=== PATIENT | female | born 1980 | race Caucasian/White ===

== ENCOUNTER 2020-09-24 16:00 | Inpatient (IN) | payer BC, OTHER ==
[2020-09-24] MEDS ORDERED: Sodium Chloride 0.9% 10 ML Syringe FLUSH PRN (16:28)
--- NOTE | 2020-09-24 17:01 | EDM.PDOC ---
ED HPI GENERAL MEDICAL PROBLEM - General Chief Complaint: Respiratory Problem Stated Complaint: [facility] Time Seen by Provider: 09/24/20 16:22 Source of Information: Reports: Patient, RN Notes Reviewed History Limitations: Reports: No Limitations - History of Present Illness INITIAL COMMENTS - FREE TEXT/NARRATIVE: Patient is a 39-year-old female who presents to the ED via [facility] for the evaluation of her ongoing COVID-19 symptoms. Patient notes that she has been feeling ill since about Saturday this last week that would be September 19, 2020, she did test positive for COVID-19 yesterday 09/23/2020. She is complaining of a nonproductive cough, generalized body aches, fatigue, and increased shortness of breath. Patient is visibly dyspneic when talking with her, and she is having hard time completing sentences without stopping. O2 sats at time of triage were 87% on room air, respiratory rate was between 20 to 22 breaths/min, her pulse rate is 95 bpm, her temperature is 100.2 F, and her blood pressure was 112/64. She took her temperature at home and was 102 F. She took 1000 mg of Tylenol at around 2 PM today. She notes that she is has some blood-tinged sputum that she is coughing up as well. Patient is a teacher at the [employer]. She is also complaining of some mild nausea, some looser stools, and no sense of smell. Generalized Pain Score (Numeric/FACES): 7 - Related Data Allergies Allergy/AdvReac Type Severity Reaction Status Date / Time No Known Allergies Allergy Verified 09/24/20 16:11 Home Meds: Home Meds Water Pill. 1 tab PO DAILY 09/24/20 [History] Past Medical History - Infectious Disease History Infectious Disease History: Reports: Novel Coronavirus (09/23/2020) - Past Surgical History HEENT Surgical History: Reports: Adenoidectomy, Tonsillectomy Female Surgical History: Reports: Tubal Ligation Social & Family History - Tobacco Use Tobacco Use Status *Q: Never Tobacco User Second Hand Smoke Exposure: No - Caffeine Use Caffeine Use: Reports: None - Recreational Drug Use Recreational Drug Use: No ED ROS GENERAL - Review of Systems Review Of Systems: Comprehensive ROS is negative, except as noted in HPI. ED EXAM, GENERAL - Physical Exam Exam: See Below Exam Limited By: No Limitations General Appearance: Alert, WD/WN, Mild Distress (patient is speaking in broken sentences), Obese (pt is morbidly obese) Respiratory/Chest: No Respiratory Distress, Lungs Clear, No Accessory Muscle Use, Chest Non-Tender, Decreased Breath Sounds (decreased diffuse bilaterally) Cardiovascular: Normal Peripheral Pulses, Regular Rate, Rhythm, No Edema, No Murmur Peripheral Pulses: 2+: Radial (L), Radial (R) Extremities: Normal Inspection, Normal Capillary Refill Neurological: Alert, Oriented, Normal Cognition, No Motor/Sensory Deficits Psychiatric: Normal Affect, Normal Mood Skin Exam: Warm, Dry, Intact, Normal Color, No Rash #1 Interpretation EKG Date: 09/24/20 Time: 16:57 Rhythm: NSR Rate (Beats/Min): 87 [place]: Normal P-Wave: Present QRS: Normal ST-T: Normal QT: Normal Comparison: NA - No Prior EKG EKG Interpretation Comments: No obvious ischemia or acute ST changes noted, reviewed by myself and Dr. Hand. Course - Vital Signs Last Recorded V/S: Last Vital Signs Temp 100.2 F 09/24/20 16:06 Pulse 95 09/24/20 16:06 Resp 20 09/24/20 16:06 BP 112/64 09/24/20 16:06 Pulse Ox 97 09/24/20 16:06 - Orders/Labs/Meds Orders: Active Orders 24 hr Category Date Time Status EKG Documentation Completion [RC] STAT Care 09/24/20 16:23 Ordered Peripheral IV Care [RC] . DIRECTED Care 09/24/20 16:28 Ordered Chest 1V Frontal [CR] Stat Exams 09/24/20 16:23 Ordered Sodium Chloride 0.9% [Saline Flush] Med 09/24/20 16:28 Ordered 10 ml FLUSH ASDIRECTED PRN Peripheral IV Insertion Adult [OM.PC] Routine Oth 09/24/20 16:28 Ordered Medication Orders Sodium Chloride (Saline Flush) 10 ml FLUSH ASDIRECTED PRN PRN Reason: Keep Vein Open Last Admin: 09/24/20 16:38 Dose: 10 ml Documented by: MEIR Labs: Laboratory Tests 09/24/20 09/24/20 09/24/20 Range/Units 16:44 16:44 16:44 WBC 3.84 L (3.98-10.04) K/mm3 RBC 4.42 (3.98-5.22) M/mm3 Hgb 12.0 (11.2-15.7) gm/dl Hct 38.3 (34.1-44.9) % MCV 86.7 (79.4-94.8) fl MCH 27.1 (25.6-32.2) pg MCHC 31.3 L (32.2-35.5) g/dl RDW Std Deviation 45.4 (36.4-46.3) fL Plt Count 238 (182-369) K/mm3 MPV 10.1 (9.4-12.3) fl Neutrophils % (Manual) 69 H (40-60) % Band Neutrophils % 0 (0-10) % Lymphocytes % (Manual) 22 (20-40) % Atypical Lymphs % 0 % Monocytes % (Manual) 9 (2-10) % Eosinophils % (Manual) 0 L (0.7-5.8) % Basophils % (Manual) 0 L (0.1-1.2) Platelet Estimate Adequate RBC Morph Comment Normal PT 10.8 (9.7-12.0) SECONDS INR 1.01 APTT 30.5 (21.7-31.4) SECONDS D-Dimer, Quantitative 0.47 (0.19-0.50) mg/L Puncture Site ABG pH (7.35-7.45) ABG pCO2 (35.0-45.0) mmHg ABG pO2 (80.0-100.0) mmHg ABG HCO3 (22.0-26.0) meq/L ABG O2 Saturation (96.0-97.0) % ABG Base Excess (-2-2.0) A-a Gradient mmHg O2 Delivery Device Oxygen Flow Rate FiO2 (21.00-100.00) % Sodium (136-145) mEq/L Potassium (3.5-5.1) mEq/L Chloride (98-107) mEq/L Carbon Dioxide (21-32) mEq/L Anion Gap (5-15) BUN (7-18) mg/dL Creatinine (0.55-1.02) mg/dL Est Cr Clr Drug Dosing mL/min Estimated GFR (MDRD) (>60) mL/min BUN/Creatinine Ratio (14-18) Glucose (74-106) mg/dL Lactic Acid (0.4-2.0) mmol/L Calcium (8.5-10.1) mg/dL Magnesium (1.8-2.4) mg/dl Ferritin (8-252) ng/ml Total Bilirubin (0.2-1.0) mg/dL AST (15-37) U/L ALT (14-59) U/L Alkaline Phosphatase (46-116) U/L Lactate Dehydrogenase (81-234) U/L Troponin I (0.00-0.056) ng/mL C-Reactive Protein 5.2 H* (<1.0) mg/dL NT-Pro-B Natriuret Pep (0-125) pg/mL Total Protein (6.4-8.2) g/dl Albumin (3.4-5.0) g/dl Globulin gm/dL Albumin/Globulin Ratio (1-2) 09/24/20 09/24/20 09/24/20 Range/Units 16:44 16:44 16:44 WBC (3.98-10.04) K/mm3 RBC (3.98-5.22) M/mm3 Hgb (11.2-15.7) gm/dl Hct (34.1-44.9) % MCV (79.4-94.8) fl MCH (25.6-32.2) pg MCHC (32.2-35.5) g/dl RDW Std Deviation (36.4-46.3) fL Plt Count (182-369) K/mm3 MPV (9.4-12.3) fl Neutrophils % (Manual) (40-60) % Band Neutrophils % (0-10) % Lymphocytes % (Manual) (20-40) % Atypical Lymphs % % Monocytes % (Manual) (2-10) % Eosinophils % (Manual) (0.7-5.8) % Basophils % (Manual) (0.1-1.2) Platelet Estimate RBC Morph Comment PT (9.7-12.0) SECONDS INR APTT (21.7-31.4) SECONDS D-Dimer, Quantitative (0.19-0.50) mg/L Puncture Site ABG pH (7.35-7.45) ABG pCO2 (35.0-45.0) mmHg ABG pO2 (80.0-100.0) mmHg ABG HCO3 (22.0-26.0) meq/L ABG O2 Saturation (96.0-97.0) % ABG Base Excess (-2-2.0) A-a Gradient mmHg O2 Delivery Device Oxygen Flow Rate FiO2 (21.00-100.00) % Sodium 136 (136-145) mEq/L Potassium 3.4 L (3.5-5.1) mEq/L Chloride 99 (98-107) mEq/L Carbon Dioxide 30 (21-32) mEq/L Anion Gap 10.4 (5-15) BUN 9 (7-18) mg/dL Creatinine 1.1 H (0.55-1.02) mg/dL Est Cr Clr Drug Dosing 66.11 mL/min Estimated GFR (MDRD) 55 (>60) mL/min BUN/Creatinine Ratio 8.2 L (14-18) Glucose 114 H (74-106) mg/dL Lactic Acid (0.4-2.0) mmol/L Calcium 8.6 (8.5-10.1) mg/dL Magnesium 1.9 (1.8-2.4) mg/dl Ferritin 95 (8-252) ng/ml Total Bilirubin 0.3 (0.2-1.0) mg/dL AST 21 (15-37) U/L ALT 15 (14-59) U/L Alkaline Phosphatase 63 (46-116) U/L Lactate Dehydrogenase 324 H (81-234) U/L Troponin I < 0.017 (0.00-0.056) ng/mL C-Reactive Protein (<1.0) mg/dL NT-Pro-B Natriuret Pep 104 (0-125) pg/mL Total Protein 7.2 (6.4-8.2) g/dl Albumin 2.8 L (3.4-5.0) g/dl Globulin 4.4 gm/dL Albumin/Globulin Ratio 0.6 L (1-2) 09/24/20 09/24/20 09/24/20 Range/Units 16:44 17:03 18:34 WBC (3.98-10.04) K/mm3 RBC (3.98-5.22) M/mm3 Hgb (11.2-15.7) gm/dl Hct (34.1-44.9) % MCV (79.4-94.8) fl MCH (25.6-32.2) pg MCHC (32.2-35.5) g/dl RDW Std Deviation (36.4-46.3) fL Plt Count (182-369) K/mm3 MPV (9.4-12.3) fl Neutrophils % (Manual) (40-60) % Band Neutrophils % (0-10) % Lymphocytes % (Manual) (20-40) % Atypical Lymphs % % Monocytes % (Manual) (2-10) % Eosinophils % (Manual) (0.7-5.8) % Basophils % (Manual) (0.1-1.2) Platelet Estimate RBC Morph Comment PT (9.7-12.0) SECONDS INR APTT (21.7-31.4) SECONDS D-Dimer, Quantitative (0.19-0.50) mg/L Puncture Site Lt radial Rt radial ABG pH 7.45 7.44 (7.35-7.45) ABG pCO2 40.6 42.6 (35.0-45.0) mmHg ABG pO2 94.0 50.0 L (80.0-100.0) mmHg ABG HCO3 27.6 H 28.1 H (22.0-26.0) meq/L ABG O2 Saturation 97.5 H 80.0 L (96.0-97.0) % ABG Base Excess 3.8 H 3.9 H (-2-2.0) A-a Gradient 55 46 mmHg O2 Delivery Device Nasal cannula Room air Oxygen Flow Rate 2.0 0.0 FiO2 28.00 21.00 (21.00-100.00) % Sodium (136-145) mEq/L Potassium (3.5-5.1) mEq/L Chloride (98-107) mEq/L Carbon Dioxide (21-32) mEq/L Anion Gap (5-15) BUN (7-18) mg/dL Creatinine (0.55-1.02) mg/dL Est Cr Clr Drug Dosing mL/min Estimated GFR (MDRD) (>60) mL/min BUN/Creatinine Ratio (14-18) Glucose (74-106) mg/dL Lactic Acid 0.8 (0.4-2.0) mmol/L Calcium (8.5-10.1) mg/dL Magnesium (1.8-2.4) mg/dl Ferritin (8-252) ng/ml Total Bilirubin (0.2-1.0) mg/dL AST (15-37) U/L ALT (14-59) U/L Alkaline Phosphatase (46-116) U/L Lactate Dehydrogenase (81-234) U/L Troponin I (0.00-0.056) ng/mL C-Reactive Protein (<1.0) mg/dL NT-Pro-B Natriuret Pep (0-125) pg/mL Total Protein (6.4-8.2) g/dl Albumin (3.4-5.0) g/dl Globulin gm/dL Albumin/Globulin Ratio (1-2) Meds: Medications Generic Name Dose Route Start Last Admin Trade Name Freq PRN Reason Stop Dose Admin Sodium Chloride 10 ml 09/24/20 16:28 09/24/20 16:38 Saline Flush FLUSH 10 ml ASDIRECTED PRN Administration Keep Vein Open Discontinued Medications Generic Name Dose Route Start Last Admin Trade Name Freq PRN Reason Stop Dose Admin Dexamethasone 6 mg 09/24/20 18:46 Decadron IVPUSH 09/24/20 18:47 ONETIME ONE Remdesivir 200 mg/ Sodium 250 mls @ 250 mls/hr 09/24/20 18:46 Chloride IV 09/24/20 18:47 ONETIME ONE - Re-Assessments/Exams Free Text/Narrative Re-Assessment/Exam: 09/24/20 17:00 Patient presents to the ED for evaluation of her ongoing COVID-19 symptoms. O2 was placed at 2 L via nasal cannula and her O2 sats improved to around 97%. She is mildly dyspneic, and having issues completing complete sentences when I am talking with her. I do believe the patient would likely benefit from hospitalization for further treatment and management. I will order labs to evaluate the COVID-19 illness, and hopefully admit the patient into our hospital, as I believe we have 1 bed left for patient management at this time. 09/24/20 18:01 The patient's labs have did, her white blood cell count is mildly low at 3.84, D-dimer is within normal limits at 0.47, ferritin within normal limits at 95 lactic acid within normal limits at 0.8, troponin is undetectably low, EKG is negative for any acute ischemic change. The patient's LDH was elevated at 324, and the CRP is elevated at 5.2. Other portions of her metabolic panel are essentially unremarkable, creatinine was a little bit elevated at 1.1, but this may very well likely be due to dehydration. Chest x-ray has been performed, however official radiology read is pending. Patient is morbidly obese and this does make interpretation difficult, but there do appear to be some Covid-like changes reviewed by myself and Dr. Hand. 09/24/20 18:49 I was able to talk with Dr. Cordova our hospitalist, and she does tentatively accept this patient for admission. I have ordered 6 mg IV dexamethasone along with remdesivir per her request. Patient will not be on any sort of IV fluids, she can eat and drink normally at this time. Departure - Departure Time of Disposition: 18:49 Disposition: Admitted As Inpatient 65 Condition: Good Clinical Impression: COVID-19 - Discharge Information Forms: ED Department Discharge Sepsis Event Note (ED) - Evaluation Sepsis Screening Result: No Definite Risk - Focused Exam Vital Signs: Vital Signs Temp Pulse Resp BP Pulse Ox Pulse Ox 09/24/20 16:06 100.2 F 95 20 112/64 87 L 97 - My Orders Last 24 Hours: My Active Orders 09/24/20 16:23 EKG Documentation Completion [RC] STAT Chest 1V Frontal [CR] Stat 09/24/20 16:28 Peripheral IV Care [RC] . DIRECTED Sodium Chloride 0.9% [Saline Flush] 10 ml FLUSH ASDIRECTED PRN Peripheral IV Insertion Adult [OM.PC] Routine - Assessment/Plan Last 24 Hours: My Active Orders 09/24/20 16:23 EKG Documentation Completion [RC] STAT Chest 1V Frontal [CR] Stat 09/24/20 16:28 Peripheral IV Care [RC] . DIRECTED Sodium Chloride 0.9% [Saline Flush] 10 ml FLUSH ASDIRECTED PRN Peripheral IV Insertion Adult [OM.PC] Routine
[2020-09-24] MEDS ORDERED: Dexamethasone 10 MG/ML SDV IVPUSH ONE (18:46)
[2020-09-24] MEDS ORDERED: REMDESIVIR 200 MG in Sodium Chloride 0.9% 250 ML IV ONE (18:46)
[2020-09-24] MEDS ORDERED: REMDESIVIR 100 MG ONE (18:59)
[2020-09-24] MEDS ORDERED: Acetaminophen 325 MG Tab PO PRN (23:11)
--- NOTE | 2020-09-25 07:30 | PCM.HP.2 ---
H&P History of Present Illness - General Date of Service: 09/25/20 Admit Problem/Dx: Admission Diagnosis/Problem Admission Diagnosis/Problem Pneumonia Source of Information: Patient, Provider History Limitations: Reports: No Limitations - History of Present Illness Initial Comments - Free Text/Narative: 39 year old female with sick contact developed generalized weakness, malaise, fever/chills with nausea/vomiting. She had the contact in the [place] area. The patient tested positive for Covid-19. Additionally mycoplasma and strep pneumo will also be ordered. She has been started on IV ATBs and steroids per Covid-19 treatment guidelines. Symptoms began 09/19, she tested positive 09/23/2020. Onset of Symptoms: Reports: Gradual Symptom Onset Date: 09/19/20 Duration of Symptoms: Reports: Day(s): Location: Reports: Generalized Quality: Reports: Same as Previous Episode Severity: Moderate Improves with: Reports: None Worsens with: Reports: None Context: Reports: Sick Contact Associated Symptoms: Reports: cough w sputum, Fever/Chills, Headaches, Loss of Appetite, Malaise, Nausea/Vomiting, Shortness of Breath, Weakness Generalized Pain Score (Numeric/FACES): 7 - Related Data Allergies/Adverse Reactions: Allergies Allergy/AdvReac Type Severity Reaction Status Date / Time No Known Allergies Allergy Verified 09/25/20 00:24 Home Medications: Home Meds Water Pill. 1 tab PO DAILY 09/24/20 [History] Past Medical History Cardiovascular History: Reports: Other (See Below) Other Cardiovascular History: edema [employer]OR MEDICAID History: Reports: Other OB/BYN History: tubal ligation 18 yrs ago Endocrine/Metabolic History: Reports: Obesity/BMI 30+ - Infectious Disease History Infectious Disease History: Reports: Other (See Below) Other Infectious Disease History: covid + - Past Surgical History HEENT Surgical History: Reports: Adenoidectomy, Tonsillectomy Cardiovascular Surgical History: Reports: None Female Surgical History: Reports: Tubal Ligation Social & Family History - Tobacco Use Tobacco Use Status *Q: Former Tobacco User Used Tobacco, but Quit: Yes Month/Year Tobacco Last Used: 1997 Tobacco Use Comment: pt quit smoking 22 yrs ago. was only a smoker for 3 yrs . 1 pack of cigarettes will last for a week Second Hand Smoke Exposure: No - Caffeine Use Caffeine Use: Reports: Coffee, Soda - Recreational Drug Use Recreational Drug Use: Yes Drug Use in Last 12 Months: Yes Recreational Drug Type: Reports: Marijuana/Hashish Recreational Drug Use Frequency: Rarely H&P Review of Systems - Review of Systems: Review Of Systems: See Below General: Reports: Fever, Chills, Malaise, Weakness, Fatigue HEENT: Reports: No Symptoms Pulmonary: Reports: Shortness of Breath, Wheezing Cardiovascular: Reports: Palpitations, Lightheadedness Gastrointestinal: Reports: No Symptoms Genitourinary: Reports: No Symptoms Musculoskeletal: Reports: No Symptoms Skin: Reports: No Symptoms Psychiatric: Reports: No Symptoms Neurological: Reports: No Symptoms Hematologic/Lymphatic: Reports: No Symptoms Immunologic: Reports: No Symptoms Exam - Exam Exam: See Below - Vital Signs Vital Signs: Last Vital Signs Temp 36.7 C 09/25/20 03:35 Pulse 80 09/25/20 05:00 Resp 20 09/25/20 03:35 BP 97/49 L 09/25/20 03:35 Pulse Ox 90 L 09/25/20 05:00 Weight: 161.932 kg - Exam Quality Assessment: Supplemental Oxygen, DVT Prophylaxis General: Alert, Oriented, Cooperative, Mild Distress HEENT: EOMI, Hearing Intact, Nares Patent, Pupils Equal, Pupils Reactive, PERRLA Neck: Trachea Midline Lungs: Normal Respiratory Effort, Decreased Breath Sounds, Rhonchi Cardiovascular: Regular Rate, Regular Rhythm GI/Abdominal Exam: Normal Bowel Sounds, Soft, Non-Tender, No Organomegaly, No Distention (Female) Exam: Deferred Rectal (Female) Exam: Deferred Back Exam: Normal Inspection Extremities: Normal Inspection, Non-Tender, Normal Capillary Refill Skin: Warm Neurological: Cranial Nerves Intact Neuro Extensive - Mental Status: Alert, Oriented x3, Normal Mood/Affect, Normal Cognition, Memory Intact Neuro Extensive - Motor, Sensory, Reflexes: CN II-XII Intact Psychiatric: Alert, Normal Affect, Normal Mood - Patient Data Lab Results Last 24 hrs: Laboratory Results - last 24 hr 09/24/20 09/24/20 09/24/20 Range/Units 16:44 16:44 16:44 WBC 3.84 L (3.98-10.04) K/mm3 RBC 4.42 (3.98-5.22) M/mm3 Hgb 12.0 (11.2-15.7) gm/dl Hct 38.3 (34.1-44.9) % MCV 86.7 (79.4-94.8) fl MCH 27.1 (25.6-32.2) pg MCHC 31.3 L (32.2-35.5) g/dl RDW Std Deviation 45.4 (36.4-46.3) fL Plt Count 238 (182-369) K/mm3 MPV 10.1 (9.4-12.3) fl Neutrophils % (Manual) 69 H (40-60) % Band Neutrophils % 0 (0-10) % Lymphocytes % (Manual) 22 (20-40) % Atypical Lymphs % 0 % Monocytes % (Manual) 9 (2-10) % Eosinophils % (Manual) 0 L (0.7-5.8) % Basophils % (Manual) 0 L (0.1-1.2) Platelet Estimate Adequate RBC Morph Comment Normal PT 10.8 (9.7-12.0) SECONDS INR 1.01 APTT 30.5 (21.7-31.4) SECONDS D-Dimer, Quantitative 0.47 (0.19-0.50) mg/L Puncture Site ABG pH (7.35-7.45) ABG pCO2 (35.0-45.0) mmHg ABG pO2 (80.0-100.0) mmHg ABG HCO3 (22.0-26.0) meq/L ABG O2 Saturation (96.0-97.0) % ABG Base Excess (-2-2.0) A-a Gradient mmHg O2 Delivery Device Oxygen Flow Rate FiO2 (21.00-100.00) % Sodium (136-145) mEq/L Potassium (3.5-5.1) mEq/L Chloride (98-107) mEq/L Carbon Dioxide (21-32) mEq/L Anion Gap (5-15) BUN (7-18) mg/dL Creatinine (0.55-1.02) mg/dL Est Cr Clr Drug Dosing mL/min Estimated GFR (MDRD) (>60) mL/min BUN/Creatinine Ratio (14-18) Glucose (74-106) mg/dL Lactic Acid (0.4-2.0) mmol/L Calcium (8.5-10.1) mg/dL Magnesium (1.8-2.4) mg/dl Ferritin (8-252) ng/ml Total Bilirubin (0.2-1.0) mg/dL AST (15-37) U/L ALT (14-59) U/L Alkaline Phosphatase (46-116) U/L Lactate Dehydrogenase (81-234) U/L Troponin I (0.00-0.056) ng/mL C-Reactive Protein 5.2 H* (<1.0) mg/dL NT-Pro-B Natriuret Pep (0-125) pg/mL Total Protein (6.4-8.2) g/dl Albumin (3.4-5.0) g/dl Globulin gm/dL Albumin/Globulin Ratio (1-2) 09/24/20 09/24/20 09/24/20 Range/Units 16:44 16:44 16:44 WBC (3.98-10.04) K/mm3 RBC (3.98-5.22) M/mm3 Hgb (11.2-15.7) gm/dl Hct (34.1-44.9) % MCV (79.4-94.8) fl MCH (25.6-32.2) pg MCHC (32.2-35.5) g/dl RDW Std Deviation (36.4-46.3) fL Plt Count (182-369) K/mm3 MPV (9.4-12.3) fl Neutrophils % (Manual) (40-60) % Band Neutrophils % (0-10) % Lymphocytes % (Manual) (20-40) % Atypical Lymphs % % Monocytes % (Manual) (2-10) % Eosinophils % (Manual) (0.7-5.8) % Basophils % (Manual) (0.1-1.2) Platelet Estimate RBC Morph Comment PT (9.7-12.0) SECONDS INR APTT (21.7-31.4) SECONDS D-Dimer, Quantitative (0.19-0.50) mg/L Puncture Site ABG pH (7.35-7.45) ABG pCO2 (35.0-45.0) mmHg ABG pO2 (80.0-100.0) mmHg ABG HCO3 (22.0-26.0) meq/L ABG O2 Saturation (96.0-97.0) % ABG Base Excess (-2-2.0) A-a Gradient mmHg O2 Delivery Device Oxygen Flow Rate FiO2 (21.00-100.00) % Sodium 136 (136-145) mEq/L Potassium 3.4 L (3.5-5.1) mEq/L Chloride 99 (98-107) mEq/L Carbon Dioxide 30 (21-32) mEq/L Anion Gap 10.4 (5-15) BUN 9 (7-18) mg/dL Creatinine 1.1 H (0.55-1.02) mg/dL Est Cr Clr Drug Dosing 66.11 mL/min Estimated GFR (MDRD) 55 (>60) mL/min BUN/Creatinine Ratio 8.2 L (14-18) Glucose 114 H (74-106) mg/dL Lactic Acid (0.4-2.0) mmol/L Calcium 8.6 (8.5-10.1) mg/dL Magnesium 1.9 (1.8-2.4) mg/dl Ferritin 95 (8-252) ng/ml Total Bilirubin 0.3 (0.2-1.0) mg/dL AST 21 (15-37) U/L ALT 15 (14-59) U/L Alkaline Phosphatase 63 (46-116) U/L Lactate Dehydrogenase 324 H (81-234) U/L Troponin I < 0.017 (0.00-0.056) ng/mL C-Reactive Protein (<1.0) mg/dL NT-Pro-B Natriuret Pep 104 (0-125) pg/mL Total Protein 7.2 (6.4-8.2) g/dl Albumin 2.8 L (3.4-5.0) g/dl Globulin 4.4 gm/dL Albumin/Globulin Ratio 0.6 L (1-2) 09/24/20 09/24/20 09/24/20 Range/Units 16:44 17:03 18:34 WBC (3.98-10.04) K/mm3 RBC (3.98-5.22) M/mm3 Hgb (11.2-15.7) gm/dl Hct (34.1-44.9) % MCV (79.4-94.8) fl MCH (25.6-32.2) pg MCHC (32.2-35.5) g/dl RDW Std Deviation (36.4-46.3) fL Plt Count (182-369) K/mm3 MPV (9.4-12.3) fl Neutrophils % (Manual) (40-60) % Band Neutrophils % (0-10) % Lymphocytes % (Manual) (20-40) % Atypical Lymphs % % Monocytes % (Manual) (2-10) % Eosinophils % (Manual) (0.7-5.8) % Basophils % (Manual) (0.1-1.2) Platelet Estimate RBC Morph Comment PT (9.7-12.0) SECONDS INR APTT (21.7-31.4) SECONDS D-Dimer, Quantitative (0.19-0.50) mg/L Puncture Site Lt radial Rt radial ABG pH 7.45 7.44 (7.35-7.45) ABG pCO2 40.6 42.6 (35.0-45.0) mmHg ABG pO2 94.0 50.0 L (80.0-100.0) mmHg ABG HCO3 27.6 H 28.1 H (22.0-26.0) meq/L ABG O2 Saturation 97.5 H 80.0 L (96.0-97.0) % ABG Base Excess 3.8 H 3.9 H (-2-2.0) A-a Gradient 55 46 mmHg O2 Delivery Device Nasal cannula Room air Oxygen Flow Rate 2.0 0.0 FiO2 28.00 21.00 (21.00-100.00) % Sodium (136-145) mEq/L Potassium (3.5-5.1) mEq/L Chloride (98-107) mEq/L Carbon Dioxide (21-32) mEq/L Anion Gap (5-15) BUN (7-18) mg/dL Creatinine (0.55-1.02) mg/dL Est Cr Clr Drug Dosing mL/min Estimated GFR (MDRD) (>60) mL/min BUN/Creatinine Ratio (14-18) Glucose (74-106) mg/dL Lactic Acid 0.8 (0.4-2.0) mmol/L Calcium (8.5-10.1) mg/dL Magnesium (1.8-2.4) mg/dl Ferritin (8-252) ng/ml Total Bilirubin (0.2-1.0) mg/dL AST (15-37) U/L ALT (14-59) U/L Alkaline Phosphatase (46-116) U/L Lactate Dehydrogenase (81-234) U/L Troponin I (0.00-0.056) ng/mL C-Reactive Protein (<1.0) mg/dL NT-Pro-B Natriuret Pep (0-125) pg/mL Total Protein (6.4-8.2) g/dl Albumin (3.4-5.0) g/dl Globulin gm/dL Albumin/Globulin Ratio (1-2) Result Diagrams: 09/25/20 08:18 09/25/20 08:18 Sepsis Event Note - Evaluation Sepsis Screening Result: Sepsis Risk - Focused Exam Vital Signs: Vital Signs Temp Pulse Resp BP BP Pulse Ox Pulse Ox 09/25/20 05:00 80 90 L 09/25/20 04:00 75 90 L 09/25/20 03:40 91 L 09/25/20 03:35 36.7 C 20 97/49 L 88 L 09/25/20 03:00 90 92 L 09/25/20 02:00 86 87 L 09/25/20 01:00 84 90 L 09/25/20 00:00 94 90 L 09/24/20 23:10 89 L 09/24/20 23:00 91 90 L 09/24/20 22:45 90 90 L 09/24/20 22:10 36.2 C 24 H 117/56 L 89 L - Problem List (1) Morbid obesity SNOMED Code(s): 724874988 ICD Code: E66.01 - MORBID (SEVERE) OBESITY DUE TO EXCESS CALORIES Status: Acute Current Visit: Yes (2) COVID-19 SNOMED Code(s): 130447349 ICD Code: U07.1 - COVID-19 Status: Acute Current Visit: Yes (3) Tobacco dependence due to cigarettes SNOMED Code(s): 29305042331486860 ICD Code: F17.210 - NICOTINE DEPENDENCE, CIGARETTES, UNCOMPLICATED Status: Acute Current Visit: Yes (4) Hyperglycemia SNOMED Code(s): 90419978 ICD Code: R73.9 - HYPERGLYCEMIA, UNSPECIFIED Status: Acute Current Visit: Yes Problem List Initiated/Reviewed/Updated: Yes Orders Last 24hrs: Active Orders 24 hr Category Date Time Status Admission Status [Patient Status] [ADT] Routine ADT 09/24/20 20:11 Active Chest Physiotherapy [RT Chest Physiotherapy] [RC] Care 09/25/20 07:29 Active ASDIRECTED Incentive Spirometry [RT Incentive Spirometry] [RC] Care 09/25/20 07:29 Active ASDIRECTED Oxygen Therapy [RC] ASDIRECTED Care 09/24/20 23:10 Active Peripheral IV Care [RC] Q2HR Care 09/24/20 16:28 Active Up ad Ruby [RC] ASDIRECTED Care 09/24/20 23:08 Active Regular Diet [DIET] Diet 09/25/20 Breakfast Active Chest 1V Frontal [CR] Stat Exams 09/24/20 16:23 Taken Acetaminophen [TylenoL] Med 09/24/20 23:11 Active 650 mg PO Q6H PRN Sodium Chloride 0.9% [Saline Flush] Med 09/24/20 16:28 Active 10 ml FLUSH ASDIRECTED PRN Peripheral IV Insertion Adult [OM.PC] Routine Oth 09/24/20 16:28 Ordered Code Status [Resuscitation Status] Routine Resus Stat 09/24/20 23:10 Ordered Medication Orders Acetaminophen (Tylenol) 650 mg PO Q6H PRN PRN Reason: Pain/Fever Sodium Chloride (Saline Flush) 10 ml FLUSH ASDIRECTED PRN PRN Reason: Keep Vein Open Last Admin: 09/24/20 16:38 Dose: 10 ml Documented by: MEIR Assessment/Plan Comment:: Impression: Atypical PNA, Covid-19 with hypoxia Tobacco dependence syndrome Chronic Substance abuse Morbid obesity Plan Cautious IVF Check mycoplasma/strep pneumo Nicotine replacement Correct electrolytes MDI/IS/Acapella O2 therapy, keep O2 sat 88-94% Dexamethasone/Zithromax/Rocephin/Remdesivir Loveonox/ASA Pepcid - Mortality Measure Prognosis:: Good
[2020-09-25] MEDS ORDERED: Albuterol 6.7 GM Inhaler INH PRN (07:38)
[2020-09-25] MEDS ORDERED: Sodium Chloride 0.9% 1,000 ML IV SCH (07:45)
[2020-09-25] MEDS: Enoxaparin 40 MG/0.4 ML Syringe SUBCUT SCH ×2 (08:08→20:28)
[2020-09-25] MEDS: cefTRIAXone 2 GM in Sodium Chloride 0.9% 100 ML IV SCH (08:09)
[2020-09-25] MEDS: Azithromycin 500 MG in Sodium Chloride 0.9% 250 ML IV SCH (08:10)
[2020-09-25] MEDS: Aspirin 81 MG Tab.EC PO SCH (08:11)
[2020-09-25] MEDS ORDERED: Dexamethasone 4 MG Tab PO SCH (09:00)
[2020-09-25 09:35] LABS: HEMOGLOBIN A1C 6.7 % (4.50-6.20)
[2020-09-25] MEDS: Albuterol 6.7 GM Inhaler INH PRN ×3 (10:19→16:42)
[2020-09-25] MEDS: Insulin Regular, Human 100 Units/ML 3 ML Vial SUBCUT SCH ×2 (13:17→18:43)
[2020-09-25] MEDS: REMDESIVIR 100 MG in Sodium Chloride 0.9% 100 ML IV SCH (17:01)
[2020-09-25] MEDS: Dexamethasone 4 MG Tab PO SCH (17:02)
[2020-09-25] MEDS: Famotidine 20 MG Tab PO SCH (20:28)
[2020-09-26] MEDS: Albuterol 6.7 GM Inhaler INH PRN ×4 (04:26→21:45)
[2020-09-26] MEDS: Enoxaparin 40 MG/0.4 ML Syringe SUBCUT SCH ×2 (08:09→20:58)
[2020-09-26] MEDS: Nicotine 14 MG/24 Hr Patch TRDERM SCH ×2 (08:09→08:12)
[2020-09-26] MEDS: Aspirin 81 MG Tab.EC PO SCH (08:09)
[2020-09-26] MEDS: Azithromycin 500 MG in Sodium Chloride 0.9% 250 ML IV SCH (08:10)
[2020-09-26] MEDS: cefTRIAXone 2 GM in Sodium Chloride 0.9% 100 ML IV SCH (08:10)
[2020-09-26] MEDS: Insulin Regular, Human 100 Units/ML 3 ML Vial SUBCUT SCH ×3 (10:03→18:39)
--- NOTE | 2020-09-26 10:14 | CR ---
PROCEDURE INFORMATION: Exam: XR Chest, 1 View Exam date and time: 09/24/2020 4:42 PM Age: 39 years old Clinical indication: Other: Covid+ TECHNIQUE: Imaging protocol: XR of the chest Views: 1 view. COMPARISON: No relevant prior studies available. FINDINGS: Lungs: Lung volumes are low. Cardiopericardial silhouette appears mildly enlarged. Mild central pulmonary venous congestion. Patchy bilateral lung opacities. Pleural space: Unremarkable. No pleural effusion. No pneumothorax. Heart/Mediastinum: See "Lungs" finding. Bones/joints: Unremarkable. IMPRESSION: 1. Minimally enlarged cardiopericardial silhouette with mild central pulmonary venous congestion. 2. Superimposed patchy ground-glass lung opacities may represent superimposed pneumonia. Thank you for allowing us to participate in the care of your patient. Dictated and Authenticated by: Jatin Rojo MD 09/24/2020 8:36 PM Central Time ([place] & [place]) [email or web address]
--- NOTE | 2020-09-26 10:15 | CR ---
PROCEDURE INFORMATION: Exam: XR Chest, 1 View Exam date and time: 09/26/2020 8:30 AM Age: 39 years old Clinical indication: Shortness of breath TECHNIQUE: Imaging protocol: XR of the chest Views: 1 view. COMPARISON: CR Chest 1V Frontal 09/24/2020 4:42 PM FINDINGS: Lungs: Persistent mild bilateral perihilar haziness. Persistent left upper and left lower lobe peripheral ground-glass opacification, questionable in central right lower lobe. Pleural space: Normal. Heart/Mediastinum: Normal dimensions of the heart. Vasculature: Unchanged engorged vessels but normal caliber of the vascular pedicle. Bones/joints: The bones are intact. Other findings: The images degraded by motion. Unchanged shallow inspiration. IMPRESSION: 1. Persistent bilateral ground-glass lung opacities in excess of that expected given persistent shallow inspiration and atelectasis. The findings are highly suspicious for unchanged diffuse pneumonia. 2. Chronic pulmonary venous congestion without overt pulmonary edema. Thank you for allowing us to participate in the care of your patient. Dictated and Authenticated by: Sourav Anderson MD 09/26/2020 10:14 AM Central Time ([place] & [place]) [email or web address]
[2020-09-26] MEDS ORDERED: Nicotine 14 MG/24 Hr Patch TRDERM PRN (10:36)
--- NOTE | 2020-09-26 12:54 | PCM.PN ---
- General Info Date of Service: 09/26/20 Subjective Update: Patient remains SOB but feels a little less short of breath. Has not remembered any previous interaction until this visit. Also clarified that she is a non smoker. Functional Status: Reports: Ambulating, Urinating - Review of Systems General: Reports: Weakness, Fatigue, Malaise HEENT: Reports: No Symptoms Pulmonary: Reports: Shortness of Breath, Pleuritic Chest Pain Cardiovascular: Reports: No Symptoms Gastrointestinal: Reports: No Symptoms Genitourinary: Reports: No Symptoms Musculoskeletal: Reports: No Symptoms Skin: Reports: No Symptoms Neurological: Reports: No Symptoms Psychiatric: Reports: No Symptoms - Patient Data Vitals - Most Recent: Last Vital Signs Temp 36.6 C 09/26/20 08:13 Pulse 66 09/26/20 04:00 Resp 19 09/26/20 08:13 BP 116/59 L 09/26/20 08:13 Pulse Ox 93 L 09/26/20 09:41 Weight - Most Recent: 166.6 kg I&O - Last 24 Hours: Intake & Output 09/25/20 09/26/20 09/26/20 22:59 06:59 14:59 Intake Total 1910 150 240 Balance 1910 150 240 Lab Results Last 24 Hours: Laboratory Results - last 24 hr 09/25/20 09/25/20 09/26/20 Range/Units 15:08 17:19 05:13 D-Dimer, Quantitative 0.55 H (0.19-0.50) mg/L Puncture Site ABG pH (7.35-7.45) ABG pCO2 (35.0-45.0) mmHg ABG pO2 (80.0-100.0) mmHg ABG HCO3 (22.0-26.0) meq/L ABG O2 Saturation (96.0-97.0) % ABG Base Excess (-2-2.0) Ho Test A-a Gradient mmHg O2 Delivery Device Oxygen Flow Rate FiO2 (21.00-100.00) % Sodium (136-145) mEq/L Potassium (3.5-5.1) mEq/L Chloride (98-107) mEq/L Carbon Dioxide (21-32) mEq/L Anion Gap (5-15) BUN (7-18) mg/dL Creatinine (0.55-1.02) mg/dL Est Cr Clr Drug Dosing mL/min Estimated GFR (MDRD) (>60) mL/min BUN/Creatinine Ratio (14-18) Glucose (74-106) mg/dL POC Glucose 120 H (70-105) mg/dL Lactic Acid (0.4-2.0) mmol/L Calcium (8.5-10.1) mg/dL Magnesium (1.8-2.4) mg/dl C-Reactive Protein (<1.0) mg/dL NT-Pro-B Natriuret Pep (0-125) pg/mL Mycoplasma pneumon IgM Negative (NEGATIVE) 09/26/20 09/26/20 09/26/20 Range/Units 05:13 05:13 05:13 D-Dimer, Quantitative (0.19-0.50) mg/L Puncture Site ABG pH (7.35-7.45) ABG pCO2 (35.0-45.0) mmHg ABG pO2 (80.0-100.0) mmHg ABG HCO3 (22.0-26.0) meq/L ABG O2 Saturation (96.0-97.0) % ABG Base Excess (-2-2.0) Ho Test A-a Gradient mmHg O2 Delivery Device Oxygen Flow Rate FiO2 (21.00-100.00) % Sodium 138 (136-145) mEq/L Potassium 3.7 (3.5-5.1) mEq/L Chloride 101 (98-107) mEq/L Carbon Dioxide 28 (21-32) mEq/L Anion Gap 12.7 (5-15) BUN 14 (7-18) mg/dL Creatinine 0.9 (0.55-1.02) mg/dL Est Cr Clr Drug Dosing 80.80 mL/min Estimated GFR (MDRD) > 60 (>60) mL/min BUN/Creatinine Ratio 15.6 (14-18) Glucose 177 H (74-106) mg/dL POC Glucose (70-105) mg/dL Lactic Acid 0.9 (0.4-2.0) mmol/L Calcium 8.0 L (8.5-10.1) mg/dL Magnesium 2.3 (1.8-2.4) mg/dl C-Reactive Protein 3.6 H* (<1.0) mg/dL NT-Pro-B Natriuret Pep 333 H (0-125) pg/mL Mycoplasma pneumon IgM (NEGATIVE) 09/26/20 09/26/20 Range/Units 08:56 09:59 D-Dimer, Quantitative (0.19-0.50) mg/L Puncture Site Lt radial ABG pH 7.44 (7.35-7.45) ABG pCO2 40.6 (35.0-45.0) mmHg ABG pO2 64.0 L (80.0-100.0) mmHg ABG HCO3 27.0 H (22.0-26.0) meq/L ABG O2 Saturation 90.6 L (96.0-97.0) % ABG Base Excess 3.1 H (-2-2.0) Ho Test Positive A-a Gradient 113 mmHg O2 Delivery Device Nasal cannula Oxygen Flow Rate 3.0 FiO2 32.00 (21.00-100.00) % Sodium (136-145) mEq/L Potassium (3.5-5.1) mEq/L Chloride (98-107) mEq/L Carbon Dioxide (21-32) mEq/L Anion Gap (5-15) BUN (7-18) mg/dL Creatinine (0.55-1.02) mg/dL Est Cr Clr Drug Dosing mL/min Estimated GFR (MDRD) (>60) mL/min BUN/Creatinine Ratio (14-18) Glucose (74-106) mg/dL POC Glucose 206 H (70-105) mg/dL Lactic Acid (0.4-2.0) mmol/L Calcium (8.5-10.1) mg/dL Magnesium (1.8-2.4) mg/dl C-Reactive Protein (<1.0) mg/dL NT-Pro-B Natriuret Pep (0-125) pg/mL Mycoplasma pneumon IgM (NEGATIVE) Med Orders - Current: Current Medications Acetaminophen (Tylenol) 650 mg PO Q6H PRN PRN Reason: Pain/Fever Albuterol (Proventil Hfa) 0 gm INH Q4H PRN PRN Reason: Shortness of Breath Last Admin: 09/26/20 09:41 Dose: 2 puff Documented by: Aspirin (Halfprin) 81 mg PO DAILY [facility] Last Admin: 09/26/20 08:09 Dose: 81 mg Documented by: Dexamethasone (Dexamethasone) 6 mg PO Q24H [facility] Stop: 11/16/20 18:01 Last Admin: 09/25/20 17:02 Dose: 6 mg Documented by: Enoxaparin Sodium (Lovenox) 40 mg SUBCUT Q12H [facility] Last Admin: 09/26/20 08:09 Dose: 40 mg Documented by: Famotidine (Pepcid) 20 mg PO BEDTIME [facility] Last Admin: 09/25/20 20:28 Dose: 20 mg Documented by: Remdesivir 100 mg/ Sodium (Chloride) 100 mls @ 100 mls/hr IV Q24H [facility] Stop: 09/28/20 18:59 Last Admin: 09/25/20 17:01 Dose: 100 mls/hr Documented by: Azithromycin 500 mg/ Sodium (Chloride) 250 mls @ 250 mls/hr IV Q24H [facility] Stop: 09/27/20 09:59 Last Admin: 09/26/20 08:10 Dose: 250 mls/hr Documented by: Ceftriaxone Sodium 2 gm/ (Sodium Chloride) 100 mls @ 200 mls/hr IV Q24H [facility] Stop: 09/29/20 08:29 Last Admin: 09/26/20 08:10 Dose: 200 mls/hr Documented by: Insulin Human Regular (Humulin R) 0 unit SUBCUT TIDPC [facility]; Protocol Last Admin: 09/26/20 10:03 Dose: 2 unit Documented by: Miscellaneous Information (Remove Patch) 0 ea TRDERM DAILY [facility] Nicotine (Habitrol) 14 mg TRDERM DAILY PRN PRN Reason: Withdrawal Symptoms Sodium Chloride (Saline Flush) 10 ml FLUSH ASDIRECTED PRN PRN Reason: Keep Vein Open Last Admin: 09/24/20 16:38 Dose: 10 ml Documented by: Discontinued Medications Albuterol (Proventil Hfa) 1 gm INH Q4H PRN PRN Reason: Shortness of Breath Dexamethasone (Decadron) 6 mg IVPUSH ONETIME ONE Stop: 09/24/20 18:47 Last Admin: 09/24/20 19:12 Dose: 6 mg Documented by: Dexamethasone (Dexamethasone) 6 mg PO DAILY [facility] Remdesivir 200 mg/ Sodium (Chloride) 250 mls @ 250 mls/hr IV ONETIME ONE Stop: 09/24/20 18:47 Last Admin: 09/24/20 19:12 Dose: 250 mls/hr Documented by: Remdesivir (Remdesivir (Eua)) Confirm Administered Dose 100 mls @ as directed .ROUTE .STK-MED ONE Stop: 09/24/20 19:00 Last Admin: 09/24/20 19:12 Dose: Not Given Documented by: Sodium Chloride (Normal Saline) 1,000 mls @ 75 mls/hr IV ASDIRECTED [facility] Stop: 09/25/20 15:45 Last Admin: 09/25/20 08:38 Dose: 75 mls/hr Documented by: Nicotine (Habitrol) 14 mg TRDERM DAILY [facility] Last Admin: 09/26/20 08:12 Dose: Not Given Documented by: - Exam Quality Assessment: Supplemental Oxygen General: Alert, Oriented, No Acute Distress HEENT: Pupils Equal, Pupils Reactive, EOMI Neck: Trachea Midline, No JVD Lungs: Decreased Breath Sounds, Rhonchi Cardiovascular: Regular Rate, Regular Rhythm GI/Abdominal Exam: Normal Bowel Sounds, Soft, Non-Tender, No Distention (Female) Exam: Deferred Back Exam: Normal Inspection Extremities: Normal Inspection, Non-Tender, Normal Capillary Refill Skin: Warm Neurological: No New Focal Deficit Psy/Mental Status: Alert Sepsis Event Note - Evaluation Sepsis Screening Result: No Definite Risk - Focused Exam Vital Signs: Vital Signs Temp Pulse Resp BP BP BP Pulse Ox 09/26/20 09:41 09/26/20 08:13 36.6 C 19 116/59 L 95 09/26/20 04:27 09/26/20 04:00 66 88 L 09/26/20 03:16 72 123/60 91 L 09/26/20 03:14 73 93 L 09/26/20 03:00 35.9 C L 67 16 123/60 95 09/26/20 02:00 69 91 L 09/26/20 01:00 72 91 L Pulse Ox 09/26/20 09:41 93 L 09/26/20 08:13 09/26/20 04:27 92 L 09/26/20 04:00 09/26/20 03:16 09/26/20 03:14 09/26/20 03:00 09/26/20 02:00 09/26/20 01:00 - Problem List & Annotations (1) Morbid obesity SNOMED Code(s): 686397726 Code(s): E66.01 - MORBID (SEVERE) OBESITY DUE TO EXCESS CALORIES Status: Acute Current Visit: Yes (2) COVID-19 SNOMED Code(s): 791579458 Code(s): U07.1 - COVID-19 Status: Acute Current Visit: Yes (3) Hyperglycemia SNOMED Code(s): 43342808 Code(s): R73.9 - HYPERGLYCEMIA, UNSPECIFIED Status: Acute Current Visit: Yes - Problem List Review Problem List Initiated/Reviewed/Updated: Yes - My Orders Last 24 Hours: My Active Orders 09/25/20 13:00 Insulin Regular, Human [HumuLIN R] See Protocol SUBCUT TIDPC 09/25/20 16:15 STREP PNEUMONIAE ANTIGEN [MREF] Routine 09/25/20 18:00 Remdesivir (Eua) [Remdesivir (EUA)] 100 mg Sodium Chloride 0.9% [Normal Saline] 100 ml IV Q24H dexAMETHasone 6 mg PO Q24H 09/25/20 21:00 Famotidine [Pepcid] 20 mg PO BEDTIME 09/26/20 10:36 Nicotine [Habitrol] 14 mg TRDERM DAILY PRN 09/26/20 10:37 Diabetes Education [RC] DAILY 09/27/20 06:00 BMP [BASIC METABOLIC PANEL,BMP] [CHEM] DAILY CRP [C-REACTIVE PROTEIN] [CHEM] DAILY D Dimer [D-DIMER QUANTITATIVE] [COAG] DAILY MAGNESIUM [CHEM] DAILY 09/27/20 09:00 Remove Patch 0 ea TRDERM DAILY 09/28/20 06:00 BMP [BASIC METABOLIC PANEL,BMP] [CHEM] DAILY CRP [C-REACTIVE PROTEIN] [CHEM] DAILY D Dimer [D-DIMER QUANTITATIVE] [COAG] DAILY MAGNESIUM [CHEM] DAILY 09/29/20 06:00 BMP [BASIC METABOLIC PANEL,BMP] [CHEM] DAILY CRP [C-REACTIVE PROTEIN] [CHEM] DAILY D Dimer [D-DIMER QUANTITATIVE] [COAG] DAILY MAGNESIUM [CHEM] DAILY 09/30/20 06:00 BMP [BASIC METABOLIC PANEL,BMP] [CHEM] DAILY D Dimer [D-DIMER QUANTITATIVE] [COAG] DAILY MAGNESIUM [CHEM] DAILY - Plan Plan:: Impression: Covid-19 PNA with hypoxia Chronic Morbid obesity DM II Plan SS Insulin Cautious IVF Check mycoplasma/strep pneumo Correct electrolytes MDI/IS/Acapella O2 therapy, keep O2 sat 88-94% Dexamethasone/Zithromax/Rocephin/Remdesivir Loveonox/ASA Pepcid
[2020-09-26] MEDS: Dexamethasone 4 MG Tab PO SCH (18:39)
[2020-09-26] MEDS: REMDESIVIR 100 MG in Sodium Chloride 0.9% 100 ML IV SCH (18:39)
[2020-09-26] MEDS: Famotidine 20 MG Tab PO SCH (20:58)
[2020-09-27] MEDS: Albuterol 6.7 GM Inhaler INH PRN ×4 (06:48→21:52)
[2020-09-27] MEDS: Aspirin 81 MG Tab.EC PO SCH (08:50)
[2020-09-27] MEDS: cefTRIAXone 2 GM in Sodium Chloride 0.9% 100 ML IV SCH (08:51)
[2020-09-27] MEDS: Enoxaparin 40 MG/0.4 ML Syringe SUBCUT SCH ×2 (08:51→20:03)
[2020-09-27] MEDS: Insulin Regular, Human 100 Units/ML 3 ML Vial SUBCUT SCH ×3 (09:02→19:49)
[2020-09-27] MEDS: Azithromycin 500 MG in Sodium Chloride 0.9% 250 ML IV SCH (09:29)
--- NOTE | 2020-09-27 16:24 | PCM.PN ---
- General Info Date of Service: 09/27/20 Subjective Update: Remains SOB, increase duration of Up in Chair. Functional Status: Reports: Tolerating Diet, Urinating - Review of Systems General: Reports: Weakness HEENT: Reports: No Symptoms Pulmonary: Reports: Shortness of Breath Cardiovascular: Reports: No Symptoms Gastrointestinal: Reports: No Symptoms Genitourinary: Reports: No Symptoms Musculoskeletal: Reports: No Symptoms Skin: Reports: No Symptoms Neurological: Reports: No Symptoms Psychiatric: Reports: No Symptoms - Patient Data Vitals - Most Recent: Last Vital Signs Temp 36.6 C 09/27/20 15:14 Pulse 66 09/26/20 04:00 Resp 20 09/27/20 15:14 BP 93/55 L 09/27/20 15:14 Pulse Ox 90 L 09/27/20 15:14 Weight - Most Recent: 165.1 kg I&O - Last 24 Hours: Intake & Output 09/27/20 09/27/20 09/27/20 06:59 14:59 22:59 Intake Total 531 307 6873 Balance 409 412 5805 Lab Results Last 24 Hours: Laboratory Results - last 24 hr 09/25/20 09/26/20 09/27/20 Range/Units 08:18 18:38 05:38 WBC (3.98-10.04) K/mm3 RBC (3.98-5.22) M/mm3 Hgb (11.2-15.7) gm/dl Hct (34.1-44.9) % MCV (79.4-94.8) fl MCH (25.6-32.2) pg MCHC (32.2-35.5) g/dl RDW Std Deviation (36.4-46.3) fL Plt Count (182-369) K/mm3 MPV (9.4-12.3) fl Neut % (Auto) (34.0-71.1) % Lymph % (Auto) (19.3-51.7) % [place] % (Auto) (4.7-12.5) % Eos % (Auto) (0.7-5.8) Baso % (Auto) (0.1-1.2) % Neut # (Auto) (1.56-6.13) K/mm3 Lymph # (Auto) (1.18-3.74) K/mm3 [place] # (Auto) (0.24-0.36) K/mm3 Eos # (Auto) (0.04-0.36) K/mm3 Baso # (Auto) (0.01-0.08) K/mm3 D-Dimer, Quantitative 0.39 (0.19-0.50) mg/L Sodium (136-145) mEq/L Potassium (3.5-5.1) mEq/L Chloride (98-107) mEq/L Carbon Dioxide (21-32) mEq/L Anion Gap (5-15) BUN (7-18) mg/dL Creatinine (0.55-1.02) mg/dL Est Cr Clr Drug Dosing mL/min Estimated GFR (MDRD) (>60) mL/min BUN/Creatinine Ratio (14-18) Glucose (74-106) mg/dL POC Glucose 151 H (70-105) mg/dL Calcium (8.5-10.1) mg/dL Magnesium (1.8-2.4) mg/dl C-Reactive Protein (<1.0) mg/dL Procalcitonin 0.08 (<0.10) ng/mL 09/27/20 09/27/20 09/27/20 Range/Units 05:38 05:38 13:52 WBC 5.32 (3.98-10.04) K/mm3 RBC 4.24 (3.98-5.22) M/mm3 Hgb 11.4 (11.2-15.7) gm/dl Hct 37.3 (34.1-44.9) % MCV 88.0 (79.4-94.8) fl MCH 26.9 (25.6-32.2) pg MCHC 30.6 L (32.2-35.5) g/dl RDW Std Deviation 45.5 (36.4-46.3) fL Plt Count 320 (182-369) K/mm3 MPV 10.4 (9.4-12.3) fl Neut % (Auto) 77.3 H (34.0-71.1) % Lymph % (Auto) 15.4 L (19.3-51.7) % [place] % (Auto) 6.0 (4.7-12.5) % Eos % (Auto) 0 L (0.7-5.8) Baso % (Auto) 0.2 (0.1-1.2) % Neut # (Auto) 4.11 (1.56-6.13) K/mm3 Lymph # (Auto) 0.82 L (1.18-3.74) K/mm3 [place] # (Auto) 0.32 (0.24-0.36) K/mm3 Eos # (Auto) 0.00 L (0.04-0.36) K/mm3 Baso # (Auto) 0.01 (0.01-0.08) K/mm3 D-Dimer, Quantitative (0.19-0.50) mg/L Sodium 140 (136-145) mEq/L Potassium 4.2 (3.5-5.1) mEq/L Chloride 103 (98-107) mEq/L Carbon Dioxide 29 (21-32) mEq/L Anion Gap 12.2 (5-15) BUN 13 (7-18) mg/dL Creatinine 0.8 (0.55-1.02) mg/dL Est Cr Clr Drug Dosing 90.90 mL/min Estimated GFR (MDRD) > 60 (>60) mL/min BUN/Creatinine Ratio 16.3 (14-18) Glucose 192 H (74-106) mg/dL POC Glucose 142 H (70-105) mg/dL Calcium 8.3 L (8.5-10.1) mg/dL Magnesium 2.4 (1.8-2.4) mg/dl C-Reactive Protein 2.6 H* (<1.0) mg/dL Procalcitonin (<0.10) ng/mL Arnol Results Last 24 Hours: Microbiology 09/25/20 16:15 Streptococcus pneumoniae Antigen (M - Final Urine Med Orders - Current: Current Medications Acetaminophen (Tylenol) 650 mg PO Q6H PRN PRN Reason: Pain/Fever Albuterol (Proventil Hfa) 0 gm INH Q4H PRN PRN Reason: Shortness of Breath Last Admin: 09/27/20 14:25 Dose: 2 puff Documented by: Aspirin (Halfprin) 81 mg PO DAILY [facility] Last Admin: 09/27/20 08:50 Dose: 81 mg Documented by: Dexamethasone (Dexamethasone) 6 mg PO Q24H [facility] Stop: 10/03/20 18:01 Last Admin: 09/26/20 18:39 Dose: 6 mg Documented by: Enoxaparin Sodium (Lovenox) 40 mg SUBCUT Q12H [facility] Last Admin: 09/27/20 08:51 Dose: 40 mg Documented by: Famotidine (Pepcid) 20 mg PO BEDTIME [facility] Last Admin: 09/26/20 20:58 Dose: 20 mg Documented by: Remdesivir 100 mg/ Sodium (Chloride) 100 mls @ 100 mls/hr IV Q24H [facility] Stop: 09/28/20 18:59 Last Admin: 09/26/20 18:39 Dose: 100 mls/hr Documented by: Ceftriaxone Sodium 2 gm/ (Sodium Chloride) 100 mls @ 200 mls/hr IV Q24H [facility] Stop: 09/29/20 08:29 Last Admin: 09/27/20 08:51 Dose: 200 mls/hr Documented by: Insulin Human Regular (Humulin R) 0 unit SUBCUT TIDPC [facility]; Protocol Last Admin: 09/27/20 13:54 Dose: Not Given Documented by: Miscellaneous Information (Remove Patch) 0 ea TRDERM DAILY [facility] Last Admin: 09/27/20 08:59 Dose: Not Given Documented by: Sodium Chloride (Saline Flush) 10 ml FLUSH ASDIRECTED PRN PRN Reason: Keep Vein Open Last Admin: 09/24/20 16:38 Dose: 10 ml Documented by: Discontinued Medications Albuterol (Proventil Hfa) 1 gm INH Q4H PRN PRN Reason: Shortness of Breath Dexamethasone (Decadron) 6 mg IVPUSH ONETIME ONE Stop: 09/24/20 18:47 Last Admin: 09/24/20 19:12 Dose: 6 mg Documented by: Dexamethasone (Dexamethasone) 6 mg PO DAILY [facility] Remdesivir 200 mg/ Sodium (Chloride) 250 mls @ 250 mls/hr IV ONETIME ONE Stop: 09/24/20 18:47 Last Admin: 09/24/20 19:12 Dose: 250 mls/hr Documented by: Remdesivir (Remdesivir (Eua)) Confirm Administered Dose 100 mls @ as directed .ROUTE .STK-MED ONE Stop: 09/24/20 19:00 Last Admin: 09/24/20 19:12 Dose: Not Given Documented by: Azithromycin 500 mg/ Sodium (Chloride) 250 mls @ 250 mls/hr IV Q24H [facility] Stop: 09/27/20 09:59 Last Admin: 09/27/20 09:29 Dose: 250 mls/hr Documented by: Sodium Chloride (Normal Saline) 1,000 mls @ 75 mls/hr IV ASDIRECTED [facility] Stop: 09/25/20 15:45 Last Admin: 09/25/20 08:38 Dose: 75 mls/hr Documented by: Nicotine (Habitrol) 14 mg TRDERM DAILY [facility] Last Admin: 09/26/20 08:12 Dose: Not Given Documented by: - Exam Quality Assessment: Supplemental Oxygen, DVT Prophylaxis General: Alert, Oriented, Cooperative, No Acute Distress HEENT: Pupils Equal, Pupils Reactive, EOMI Neck: Trachea Midline, No JVD Lungs: Normal Respiratory Effort, Decreased Breath Sounds, Rhonchi Cardiovascular: Regular Rate, Regular Rhythm GI/Abdominal Exam: Normal Bowel Sounds, Soft, Non-Tender, No Organomegaly, No Distention (Female) Exam: Deferred Back Exam: Normal Inspection Extremities: Normal Inspection, Non-Tender, Normal Capillary Refill Skin: Warm Neurological: No New Focal Deficit, Normal Speech Psy/Mental Status: Alert, Normal Affect, Normal Mood Sepsis Event Note - Evaluation Sepsis Screening Result: No Definite Risk - Focused Exam Vital Signs: Vital Signs Temp Resp BP Pulse Ox Pulse Ox 09/27/20 15:14 36.6 C 20 93/55 L 90 L 09/27/20 14:57 90 L 09/27/20 14:25 95 09/27/20 09:35 36.7 C 20 104/56 L 95 09/27/20 09:07 94 L 09/27/20 06:49 99 - Problem List & Annotations (1) Morbid obesity SNOMED Code(s): 317507704 Code(s): E66.01 - MORBID (SEVERE) OBESITY DUE TO EXCESS CALORIES Status: Acute Current Visit: Yes (2) COVID-19 SNOMED Code(s): 126962780 Code(s): U07.1 - COVID-19 Status: Acute Current Visit: Yes (3) Hyperglycemia SNOMED Code(s): 56446171 Code(s): R73.9 - HYPERGLYCEMIA, UNSPECIFIED Status: Acute Current Visit: Yes - Problem List Review Problem List Initiated/Reviewed/Updated: Yes - My Orders Last 24 Hours: My Active Orders 09/27/20 09:00 Remove Patch 0 ea TRDERM DAILY 09/28/20 06:00 BMP [BASIC METABOLIC PANEL,BMP] [CHEM] DAILY CBC WITH AUTO DIFF [HEME] DAILY CRP [C-REACTIVE PROTEIN] [CHEM] DAILY D Dimer [D-DIMER QUANTITATIVE] [COAG] DAILY MAGNESIUM [CHEM] DAILY 09/29/20 06:00 BMP [BASIC METABOLIC PANEL,BMP] [CHEM] DAILY CBC WITH AUTO DIFF [HEME] DAILY CRP [C-REACTIVE PROTEIN] [CHEM] DAILY D Dimer [D-DIMER QUANTITATIVE] [COAG] DAILY MAGNESIUM [CHEM] DAILY 09/30/20 06:00 BMP [BASIC METABOLIC PANEL,BMP] [CHEM] DAILY CBC WITH AUTO DIFF [HEME] DAILY D Dimer [D-DIMER QUANTITATIVE] [COAG] DAILY MAGNESIUM [CHEM] DAILY - Plan Plan:: Impression: Covid-19 PNA with hypoxia Chronic Morbid obesity DM II Plan SS Insulin Cautious IVF Correct electrolytes MDI/IS/Acapella O2 therapy, keep O2 sat 88-94% Dexamethasone/Zithromax/Rocephin/Remdesivir per protocol Loveonox/ASA Pepcid
[2020-09-27] MEDS: REMDESIVIR 100 MG in Sodium Chloride 0.9% 100 ML IV SCH (17:25)
[2020-09-27] MEDS: Dexamethasone 4 MG Tab PO SCH (17:25)
[2020-09-27] MEDS: Famotidine 20 MG Tab PO SCH (20:02)
[2020-09-28] MEDS: Insulin Regular, Human 100 Units/ML 3 ML Vial SUBCUT SCH ×4 (07:32→18:29)
[2020-09-28] MEDS: Aspirin 81 MG Tab.EC PO SCH (08:28)
[2020-09-28] MEDS: cefTRIAXone 2 GM in Sodium Chloride 0.9% 100 ML IV SCH (08:28)
[2020-09-28] MEDS: Enoxaparin 40 MG/0.4 ML Syringe SUBCUT SCH ×2 (08:28→19:50)
--- NOTE | 2020-09-28 16:43 | PCM.PN ---
- General Info Date of Service: 09/28/20 Admission Dx/Problem (Free Text): Admission Diagnosis/Problem Admission Diagnosis/Problem Pneumonia Subjective Update: Patient continues to improve. Appetite has improved. She is sleeping and resting comfortably. Functional Status: Reports: Pain Controlled - Review of Systems General: Reports: Fatigue HEENT: Reports: No Symptoms Pulmonary: Reports: No Symptoms Cardiovascular: Reports: No Symptoms Gastrointestinal: Reports: No Symptoms Musculoskeletal: Reports: No Symptoms Neurological: Reports: No Symptoms Psychiatric: Reports: No Symptoms - Patient Data Vitals - Most Recent: Last Vital Signs Temp 98.3 F 09/28/20 07:29 Pulse 70 09/28/20 16:00 Resp 24 H 09/28/20 07:29 BP 99/84 09/28/20 07:29 Pulse Ox 92 L 09/28/20 16:00 Weight - Most Recent: 356 lb 3 oz I&O - Last 24 Hours: Intake & Output 09/28/20 09/28/20 09/28/20 06:59 14:59 22:59 Intake Total 545 120 420 Output Total 700 Balance -155 120 420 Lab Results Last 24 Hours: Laboratory Results - last 24 hr 09/27/20 09/28/20 09/28/20 Range/Units 17:11 05:48 05:48 WBC (3.98-10.04) K/mm3 RBC (3.98-5.22) M/mm3 Hgb (11.2-15.7) gm/dl Hct (34.1-44.9) % MCV (79.4-94.8) fl MCH (25.6-32.2) pg MCHC (32.2-35.5) g/dl RDW Std Deviation (36.4-46.3) fL Plt Count (182-369) K/mm3 MPV (9.4-12.3) fl Neut % (Auto) (34.0-71.1) % Lymph % (Auto) (19.3-51.7) % [place] % (Auto) (4.7-12.5) % Eos % (Auto) (0.7-5.8) Baso % (Auto) (0.1-1.2) % Neut # (Auto) (1.56-6.13) K/mm3 Lymph # (Auto) (1.18-3.74) K/mm3 [place] # (Auto) (0.24-0.36) K/mm3 Eos # (Auto) (0.04-0.36) K/mm3 Baso # (Auto) (0.01-0.08) K/mm3 Manual Slide Review D-Dimer, Quantitative 0.32 (0.19-0.50) mg/L Sodium 139 (136-145) mEq/L Potassium 4.3 (3.5-5.1) mEq/L Chloride 101 (98-107) mEq/L Carbon Dioxide 29 (21-32) mEq/L Anion Gap 13.3 (5-15) BUN 13 (7-18) mg/dL Creatinine 0.9 (0.55-1.02) mg/dL Est Cr Clr Drug Dosing 80.80 mL/min Estimated GFR (MDRD) > 60 (>60) mL/min BUN/Creatinine Ratio 14.4 (14-18) Glucose 221 H (74-106) mg/dL POC Glucose 109 H (70-105) mg/dL Calcium 8.2 L (8.5-10.1) mg/dL Magnesium 2.4 (1.8-2.4) mg/dl C-Reactive Protein 1.7 H* (<1.0) mg/dL 09/28/20 09/28/20 09/28/20 Range/Units 05:48 07:26 12:27 WBC 5.16 (3.98-10.04) K/mm3 RBC 4.24 (3.98-5.22) M/mm3 Hgb 11.2 (11.2-15.7) gm/dl Hct 37.3 (34.1-44.9) % MCV 88.0 (79.4-94.8) fl MCH 26.4 (25.6-32.2) pg MCHC 30.0 L (32.2-35.5) g/dl RDW Std Deviation 45.2 (36.4-46.3) fL Plt Count 366 (182-369) K/mm3 MPV 10.2 (9.4-12.3) fl Neut % (Auto) 69.8 (34.0-71.1) % Lymph % (Auto) 17.8 L (19.3-51.7) % [place] % (Auto) 9.3 (4.7-12.5) % Eos % (Auto) 0 L (0.7-5.8) Baso % (Auto) 0.2 (0.1-1.2) % Neut # (Auto) 3.60 (1.56-6.13) K/mm3 Lymph # (Auto) 0.92 L (1.18-3.74) K/mm3 [place] # (Auto) 0.48 H (0.24-0.36) K/mm3 Eos # (Auto) 0.00 L (0.04-0.36) K/mm3 Baso # (Auto) 0.01 (0.01-0.08) K/mm3 Manual Slide Review Normal smear D-Dimer, Quantitative (0.19-0.50) mg/L Sodium (136-145) mEq/L Potassium (3.5-5.1) mEq/L Chloride (98-107) mEq/L Carbon Dioxide (21-32) mEq/L Anion Gap (5-15) BUN (7-18) mg/dL Creatinine (0.55-1.02) mg/dL Est Cr Clr Drug Dosing mL/min Estimated GFR (MDRD) (>60) mL/min BUN/Creatinine Ratio (14-18) Glucose (74-106) mg/dL POC Glucose 166 H 127 H (70-105) mg/dL Calcium (8.5-10.1) mg/dL Magnesium (1.8-2.4) mg/dl C-Reactive Protein (<1.0) mg/dL Med Orders - Current: Current Medications Acetaminophen (Tylenol) 650 mg PO Q6H PRN PRN Reason: Pain/Fever Albuterol (Proventil Hfa) 0 gm INH Q4H PRN PRN Reason: Shortness of Breath Last Admin: 09/27/20 21:52 Dose: 2 puff Documented by: Aspirin (Halfprin) 81 mg PO DAILY [facility] Last Admin: 09/28/20 08:28 Dose: 81 mg Documented by: Dexamethasone (Dexamethasone) 6 mg PO Q24H [facility] Stop: 10/03/20 18:01 Last Admin: 09/27/20 17:25 Dose: 6 mg Documented by: Enoxaparin Sodium (Lovenox) 40 mg SUBCUT Q12H [facility] Last Admin: 09/28/20 08:28 Dose: 40 mg Documented by: Famotidine (Pepcid) 20 mg PO BEDTIME [facility] Last Admin: 09/27/20 20:02 Dose: 20 mg Documented by: Remdesivir 100 mg/ Sodium (Chloride) 100 mls @ 100 mls/hr IV Q24H [facility] Stop: 09/28/20 18:59 Last Admin: 09/27/20 17:25 Dose: 100 mls/hr Documented by: Ceftriaxone Sodium 2 gm/ (Sodium Chloride) 100 mls @ 200 mls/hr IV Q24H [facility] Stop: 09/29/20 08:29 Last Admin: 09/28/20 08:28 Dose: 200 mls/hr Documented by: Insulin Human Regular (Humulin R) [facility]; Protocol Last Admin: 09/28/20 13:41 Dose: Not Given Documented by: Miscellaneous Information (Remove Patch) 0 ea TRDERM DAILY [facility] Last Admin: 09/28/20 08:29 Dose: Not Given Documented by: Sodium Chloride (Saline Flush) 10 ml FLUSH ASDIRECTED PRN PRN Reason: Keep Vein Open Last Admin: 09/24/20 16:38 Dose: 10 ml Documented by: Discontinued Medications Albuterol (Proventil Hfa) 1 gm INH Q4H PRN PRN Reason: Shortness of Breath Dexamethasone (Decadron) 6 mg IVPUSH ONETIME ONE Stop: 09/24/20 18:47 Last Admin: 09/24/20 19:12 Dose: 6 mg Documented by: Dexamethasone (Dexamethasone) 6 mg PO DAILY [facility] Remdesivir 200 mg/ Sodium (Chloride) 250 mls @ 250 mls/hr IV ONETIME ONE Stop: 09/24/20 18:47 Last Admin: 09/24/20 19:12 Dose: 250 mls/hr Documented by: Remdesivir (Remdesivir (Eua)) Confirm Administered Dose 100 mls @ as directed .ROUTE .STK-MED ONE Stop: 09/24/20 19:00 Last Admin: 09/24/20 19:12 Dose: Not Given Documented by: Azithromycin 500 mg/ Sodium (Chloride) 250 mls @ 250 mls/hr IV Q24H [facility] Stop: 09/27/20 09:59 Last Admin: 09/27/20 09:29 Dose: 250 mls/hr Documented by: Sodium Chloride (Normal Saline) 1,000 mls @ 75 mls/hr IV ASDIRECTED [facility] Stop: 09/25/20 15:45 Last Admin: 09/25/20 08:38 Dose: 75 mls/hr Documented by: Nicotine (Habitrol) 14 mg TRDERM DAILY [facility] Last Admin: 09/26/20 08:12 Dose: Not Given Documented by: - Exam Quality Assessment: Supplemental Oxygen (Nasal cannula) General: Alert, Oriented HEENT: Pupils Equal, Mucous Membr. Moist/[place] Neck: Supple Lungs: Normal Respiratory Effort, Rales (Bibasilar) Cardiovascular: Regular Rate, Regular Rhythm GI/Abdominal Exam: Normal Bowel Sounds, Soft, Non-Tender, No Organomegaly, No Distention, No Abnormal Bruit, No Mass Extremities: Normal Inspection, Normal Range of Motion, Non-Tender, No Pedal Edema, Normal Capillary Refill Skin: Warm, Dry, Intact Psy/Mental Status: Alert, Normal Affect, Normal Mood Sepsis Event Note - Evaluation Sepsis Screening Result: No Definite Risk - Focused Exam Vital Signs: Vital Signs Temp Pulse Pulse Resp BP BP Pulse Ox 09/28/20 16:00 70 92 L 09/28/20 15:00 62 93 L 09/28/20 14:00 75 93 L 09/28/20 13:00 65 95 09/28/20 12:00 68 91 L 09/28/20 11:00 59 L 88 L 09/28/20 10:00 68 90 L 09/28/20 09:00 68 92 L 09/28/20 08:00 62 91 L 09/28/20 07:29 98.3 F 63 65 24 H 99/84 99/84 92 L 09/28/20 07:28 68 92 L 09/28/20 07:00 62 92 L 09/28/20 06:18 09/28/20 06:00 59 L 92 L 09/28/20 05:00 59 L 96 Pulse Ox 09/28/20 16:00 09/28/20 15:00 09/28/20 14:00 09/28/20 13:00 09/28/20 12:00 09/28/20 11:00 09/28/20 10:00 09/28/20 09:00 09/28/20 08:00 09/28/20 07:29 09/28/20 07:28 09/28/20 07:00 09/28/20 06:18 94 L 09/28/20 06:00 09/28/20 05:00 - Problem List & Annotations (1) COVID-19 SNOMED Code(s): 523366898 Code(s): U07.1 - COVID-19 Status: Acute Current Visit: Yes (2) Hyperglycemia SNOMED Code(s): 06444907 Code(s): R73.9 - HYPERGLYCEMIA, UNSPECIFIED Status: Acute Current Visit: Yes (3) Morbid obesity SNOMED Code(s): 283528828 Code(s): E66.01 - MORBID (SEVERE) OBESITY DUE TO EXCESS CALORIES Status: Acute Current Visit: Yes (4) Tobacco dependence due to cigarettes SNOMED Code(s): 49391898802322173 Code(s): F17.210 - NICOTINE DEPENDENCE, CIGARETTES, UNCOMPLICATED Status: Acute Current Visit: Yes - Problem List Review Problem List Initiated/Reviewed/Updated: Yes - My Orders Last 24 Hours: My Active Orders 09/28/20 Lunch Consistent Carbohydrate Diet [DIET] - Plan Plan:: Impression: Covid-19 PNA with hypoxia -still requiring 2 L nasal cannula Reactive protein down to 1.7 and D-dimer remains negative at 0.32. She continues to rely on 2 L nasal cannula. Blood sugars are ranging from 109-221. Chronic Morbid obesity DM II Plan SS Insulin Correct electrolytes as needed MDI/IS/Acapella O2 therapy, keep O2 sat 88-94% Dexamethasone day 5 Zithromax completed Rocephin day 4 of 5 Remdesivir day 5 VTE prophylaxis Lovenox 40 mg twice daily/ASA Pepcid CODE STATUS: Full code
[2020-09-28] MEDS: REMDESIVIR 100 MG in Sodium Chloride 0.9% 100 ML IV SCH (18:28)
[2020-09-28] MEDS: Dexamethasone 4 MG Tab PO SCH (18:28)
[2020-09-28] MEDS: Famotidine 20 MG Tab PO SCH ×2 (19:49→20:22)
[2020-09-28] MEDS: Albuterol 6.7 GM Inhaler INH PRN (21:43)
[2020-09-29] MEDS: cefTRIAXone 2 GM in Sodium Chloride 0.9% 100 ML IV SCH ×2 (07:58→08:07)
[2020-09-29] MEDS: Enoxaparin 40 MG/0.4 ML Syringe SUBCUT SCH ×2 (07:58→20:21)
[2020-09-29] MEDS: Aspirin 81 MG Tab.EC PO SCH (07:59)
[2020-09-29] MEDS: Insulin Regular, Human 100 Units/ML 3 ML Vial SUBCUT SCH ×2 (07:59→20:28)
[2020-09-29] MEDS: Cefdinir 300 MG Cap PO SCH ×2 (08:27→20:21)
--- NOTE | 2020-09-29 14:12 | PCM.PN ---
- General Info Date of Service: 09/29/20 Admission Dx/Problem (Free Text): Admission Diagnosis/Problem Admission Diagnosis/Problem Pneumonia Subjective Update: Iesha is feeling well. Her respiratory status is improving. Appetite is good. Had a bowel movement this morning. Functional Status: Reports: Pain Controlled - Review of Systems General: Reports: No Symptoms HEENT: Reports: No Symptoms Pulmonary: Reports: Shortness of Breath, Cough Cardiovascular: Reports: No Symptoms Gastrointestinal: Reports: No Symptoms Musculoskeletal: Reports: No Symptoms Psychiatric: Reports: No Symptoms - Patient Data Vitals - Most Recent: Last Vital Signs Temp 98.2 F 09/29/20 07:59 Pulse 63 09/29/20 06:00 Resp 19 09/29/20 07:59 BP 112/69 09/29/20 07:59 Pulse Ox 95 09/29/20 08:55 Weight - Most Recent: 357 lb I&O - Last 24 Hours: Intake & Output 09/28/20 09/29/20 09/29/20 22:59 06:59 14:59 Intake Total 940 1000 180 Output Total 300 900 Balance 640 100 180 Lab Results Last 24 Hours: Laboratory Results - last 24 hr 09/28/20 09/29/20 Range/Units 18:27 06:44 POC Glucose 123 H 164 H (70-105) mg/dL Med Orders - Current: Current Medications Acetaminophen (Tylenol) 650 mg PO Q6H PRN PRN Reason: Pain/Fever Albuterol (Proventil Hfa) 0 gm INH Q4H PRN PRN Reason: Shortness of Breath Last Admin: 09/28/20 21:43 Dose: 2 puff Documented by: Aspirin (Halfprin) 81 mg PO DAILY [facility] Last Admin: 09/29/20 07:59 Dose: 81 mg Documented by: Cefdinir (Omnicef) 300 mg PO BID [facility] Stop: 09/29/20 21:01 Last Admin: 09/29/20 08:27 Dose: 300 mg Documented by: Dexamethasone (Dexamethasone) 6 mg PO Q24H [facility] Stop: 10/03/20 18:01 Last Admin: 09/28/20 18:28 Dose: 6 mg Documented by: Enoxaparin Sodium (Lovenox) 40 mg SUBCUT Q12H [facility] Last Admin: 09/29/20 07:58 Dose: 40 mg Documented by: Famotidine (Pepcid) 20 mg PO BEDTIME [facility] Last Admin: 09/28/20 20:22 Dose: Not Given Documented by: Insulin Human Regular (Humulin R) 0 unit SUBCUT BID [facility]; Protocol Sodium Chloride (Saline Flush) 10 ml FLUSH ASDIRECTED PRN PRN Reason: Keep Vein Open Last Admin: 09/24/20 16:38 Dose: 10 ml Documented by: Discontinued Medications Albuterol (Proventil Hfa) 1 gm INH Q4H PRN PRN Reason: Shortness of Breath Dexamethasone (Decadron) 6 mg IVPUSH ONETIME ONE Stop: 09/24/20 18:47 Last Admin: 09/24/20 19:12 Dose: 6 mg Documented by: Dexamethasone (Dexamethasone) 6 mg PO DAILY [facility] Remdesivir 200 mg/ Sodium (Chloride) 250 mls @ 250 mls/hr IV ONETIME ONE Stop: 09/24/20 18:47 Last Admin: 09/24/20 19:12 Dose: 250 mls/hr Documented by: Remdesivir (Remdesivir (Eua)) Confirm Administered Dose 100 mls @ as directed .ROUTE .STK-MED ONE Stop: 09/24/20 19:00 Last Admin: 09/24/20 19:12 Dose: Not Given Documented by: Remdesivir 100 mg/ Sodium (Chloride) 100 mls @ 100 mls/hr IV Q24H [facility] Stop: 09/28/20 18:59 Last Admin: 09/28/20 18:28 Dose: 100 mls/hr Documented by: Azithromycin 500 mg/ Sodium (Chloride) 250 mls @ 250 mls/hr IV Q24H [facility] Stop: 09/27/20 09:59 Last Admin: 09/27/20 09:29 Dose: 250 mls/hr Documented by: Ceftriaxone Sodium 2 gm/ (Sodium Chloride) 100 mls @ 200 mls/hr IV Q24H [facility] Stop: 09/29/20 08:29 Last Admin: 09/29/20 08:07 Dose: Not Given Documented by: Sodium Chloride (Normal Saline) 1,000 mls @ 75 mls/hr IV ASDIRECTED [facility] Stop: 09/25/20 15:45 Last Admin: 09/25/20 08:38 Dose: 75 mls/hr Documented by: Insulin Human Regular (Humulin R) 0 unit SUBCUT TIDPC [facility]; Protocol Last Admin: 09/29/20 07:59 Dose: 1 unit Documented by: Miscellaneous Information (Remove Patch) 0 ea TRDERM DAILY [facility] Last Admin: 09/28/20 08:29 Dose: Not Given Documented by: Nicotine (Habitrol) 14 mg TRDERM DAILY [facility] Last Admin: 09/26/20 08:12 Dose: Not Given Documented by: - Exam Quality Assessment: Supplemental Oxygen (Nasal cannula) General: Alert, Oriented HEENT: Pupils Equal, Mucous Membr. Moist/[place] Lungs: Normal Respiratory Effort, Rales (Bibasilar rales) Cardiovascular: Regular Rate, Regular Rhythm GI/Abdominal Exam: Normal Bowel Sounds, Soft, Non-Tender, No Distention Extremities: Normal Inspection, Normal Range of Motion, No Pedal Edema, Normal Capillary Refill Skin: Warm, Dry, Intact Psy/Mental Status: Alert, Normal Affect, Normal Mood Sepsis Event Note - Evaluation Sepsis Screening Result: No Definite Risk - Focused Exam Vital Signs: Vital Signs Temp Pulse Resp BP BP Pulse Ox Pulse Ox 09/29/20 08:55 95 09/29/20 07:59 98.2 F 19 112/69 92 L 09/29/20 06:00 63 92 L 09/29/20 05:00 65 92 L 09/29/20 04:00 97.3 F 20 126/76 92 L 09/29/20 03:00 55 L 93 L 09/29/20 02:28 88 90 L - Problem List & Annotations (1) COVID-19 SNOMED Code(s): 028477464 Code(s): U07.1 - COVID-19 Status: Acute Current Visit: Yes (2) Hyperglycemia SNOMED Code(s): 31373964 Code(s): R73.9 - HYPERGLYCEMIA, UNSPECIFIED Status: Acute Current Visit: Yes (3) Morbid obesity SNOMED Code(s): 184000096 Code(s): E66.01 - MORBID (SEVERE) OBESITY DUE TO EXCESS CALORIES Status: Acute Current Visit: Yes (4) Tobacco dependence due to cigarettes SNOMED Code(s): 01546149055001040 Code(s): F17.210 - NICOTINE DEPENDENCE, CIGARETTES, UNCOMPLICATED Status: Acute Current Visit: Yes - Problem List Review Problem List Initiated/Reviewed/Updated: Yes - My Orders Last 24 Hours: My Active Orders 09/29/20 09:00 Cefdinir [Omnicef] 300 mg PO BID 09/29/20 21:00 Insulin Regular, Human [HumuLIN R] See Protocol SUBCUT BID - Plan Plan:: Impression: Covid-19 PNA with hypoxia -still requiring 2 L nasal cannula Hyperglycemia: Blood sugars have stabilized in the low to mid 100s Chronic Morbid obesity DM II Plan SS Insulin: Switch to twice daily Correct electrolytes as needed MDI/IS/Acapella O2 therapy, keep O2 sat 88-94%; currently on 1 L/min nasal cannula Dexamethasone day 6 Zithromax completed Rocephin completed Remdesivir completed VTE prophylaxis Lovenox 40 mg twice daily/ASA Pepcid CODE STATUS: Full code Anticipate discharge in 1 to 2 days.
[2020-09-29] MEDS: Dexamethasone 4 MG Tab PO SCH (17:00)
[2020-09-29] MEDS: Famotidine 20 MG Tab PO SCH (20:21)
[2020-09-30] MEDS: Enoxaparin 40 MG/0.4 ML Syringe SUBCUT SCH ×2 (07:50→20:33)
[2020-09-30] MEDS: Insulin Regular, Human 100 Units/ML 3 ML Vial SUBCUT SCH ×3 (07:52→20:37)
[2020-09-30] MEDS: Aspirin 81 MG Tab.EC PO SCH ×2 (07:53→08:29)
--- NOTE | 2020-09-30 14:46 | PCM.PN ---
- General Info Date of Service: 09/30/20 Admission Dx/Problem (Free Text): Admission Diagnosis/Problem Admission Diagnosis/Problem Pneumonia Subjective Update: Patient is doing much better. She is off of oxygen, but does have desats into the mid 80s with ambulation. Appetite is good. Functional Status: Reports: Pain Controlled - Review of Systems General: Reports: No Symptoms HEENT: Reports: No Symptoms Pulmonary: Reports: No Symptoms Cardiovascular: Reports: No Symptoms Gastrointestinal: Reports: No Symptoms Musculoskeletal: Reports: No Symptoms Neurological: Reports: No Symptoms Psychiatric: Reports: No Symptoms - Patient Data Vitals - Most Recent: Last Vital Signs Temp 97.2 F 09/30/20 07:58 Pulse 63 09/30/20 09:00 Resp 20 09/30/20 07:58 BP 104/44 L 09/30/20 07:58 Pulse Ox 94 L 09/30/20 09:45 Weight - Most Recent: 357 lb 1.6 oz I&O - Last 24 Hours: Intake & Output 09/29/20 09/30/20 09/30/20 22:59 06:59 14:59 Intake Total 180 Output Total 400 600 Balance -400 -600 180 Lab Results Last 24 Hours: Laboratory Results - last 24 hr 09/29/20 09/30/20 Range/Units 20:25 07:47 POC Glucose 181 H 152 H (70-105) mg/dL Med Orders - Current: Current Medications Acetaminophen (Tylenol) 650 mg PO Q6H PRN PRN Reason: Pain/Fever Albuterol (Proventil Hfa) 0 gm INH Q4H PRN PRN Reason: Shortness of Breath Last Admin: 09/28/20 21:43 Dose: 2 puff Documented by: Aspirin (Halfprin) 81 mg PO DAILY [facility] Last Admin: 09/30/20 08:29 Dose: Not Given Documented by: Dexamethasone (Dexamethasone) 6 mg PO Q24H [facility] Stop: 10/03/20 18:01 Last Admin: 09/29/20 17:00 Dose: 6 mg Documented by: Enoxaparin Sodium (Lovenox) 40 mg SUBCUT Q12H [facility] Last Admin: 09/30/20 07:50 Dose: 40 mg Documented by: Famotidine (Pepcid) 20 mg PO BEDTIME [facility] Last Admin: 09/29/20 20:21 Dose: 20 mg Documented by: Insulin Human Regular (Humulin R) 0 unit SUBCUT BID [facility]; Protocol Last Admin: 09/30/20 08:29 Dose: Not Given Documented by: Discontinued Medications Albuterol (Proventil Hfa) 1 gm INH Q4H PRN PRN Reason: Shortness of Breath Cefdinir (Omnicef) 300 mg PO BID [facility] Stop: 09/29/20 21:01 Last Admin: 09/29/20 20:21 Dose: 300 mg Documented by: Dexamethasone (Decadron) 6 mg IVPUSH ONETIME ONE Stop: 09/24/20 18:47 Last Admin: 09/24/20 19:12 Dose: 6 mg Documented by: Dexamethasone (Dexamethasone) 6 mg PO DAILY [facility] Remdesivir 200 mg/ Sodium (Chloride) 250 mls @ 250 mls/hr IV ONETIME ONE Stop: 09/24/20 18:47 Last Admin: 09/24/20 19:12 Dose: 250 mls/hr Documented by: Remdesivir (Remdesivir (Eua)) Confirm Administered Dose 100 mls @ as directed .ROUTE .STK-MED ONE Stop: 09/24/20 19:00 Last Admin: 09/24/20 19:12 Dose: Not Given Documented by: Remdesivir 100 mg/ Sodium (Chloride) 100 mls @ 100 mls/hr IV Q24H [facility] Stop: 09/28/20 18:59 Last Admin: 09/28/20 18:28 Dose: 100 mls/hr Documented by: Azithromycin 500 mg/ Sodium (Chloride) 250 mls @ 250 mls/hr IV Q24H [facility] Stop: 09/27/20 09:59 Last Admin: 09/27/20 09:29 Dose: 250 mls/hr Documented by: Ceftriaxone Sodium 2 gm/ (Sodium Chloride) 100 mls @ 200 mls/hr IV Q24H [facility] Stop: 09/29/20 08:29 Last Admin: 09/29/20 08:07 Dose: Not Given Documented by: Sodium Chloride (Normal Saline) 1,000 mls @ 75 mls/hr IV ASDIRECTED [facility] Stop: 09/25/20 15:45 Last Admin: 09/25/20 08:38 Dose: 75 mls/hr Documented by: Insulin Human Regular (Humulin R) 0 unit SUBCUT TIDPC [facility]; Protocol Last Admin: 09/29/20 07:59 Dose: 1 unit Documented by: Miscellaneous Information (Remove Patch) 0 ea TRDERM DAILY [facility] Last Admin: 09/28/20 08:29 Dose: Not Given Documented by: Nicotine (Habitrol) 14 mg TRDERM DAILY [facility] Last Admin: 09/26/20 08:12 Dose: Not Given Documented by: Sodium Chloride (Saline Flush) 10 ml FLUSH ASDIRECTED PRN PRN Reason: Keep Vein Open Last Admin: 09/24/20 16:38 Dose: 10 ml Documented by: - Exam Quality Assessment: Supplemental Oxygen General: Alert, Oriented HEENT: Pupils Equal, Mucous Membr. Moist/[place] Neck: Supple Lungs: Clear to Auscultation, Normal Respiratory Effort Cardiovascular: Regular Rate, Regular Rhythm GI/Abdominal Exam: Normal Bowel Sounds, Soft, Non-Tender, No Organomegaly, No Distention, No Abnormal Bruit Extremities: Normal Inspection, Normal Range of Motion, Non-Tender, No Pedal Edema, Normal Capillary Refill Skin: Warm, Dry, Intact Psy/Mental Status: Alert, Normal Affect, Normal Mood Sepsis Event Note - Evaluation Sepsis Screening Result: No Definite Risk - Focused Exam Vital Signs: Vital Signs Temp Pulse Resp BP BP Pulse Ox Pulse Ox 09/30/20 09:45 09/30/20 09:00 63 94 L 09/30/20 08:00 69 91 L 09/30/20 07:58 97.2 F 20 104/44 L 92 L 09/30/20 07:57 70 104/44 L 93 L 09/30/20 07:56 69 90 L 09/30/20 07:00 64 90 L 09/30/20 06:20 91 L 09/30/20 06:00 56 L 90 L 09/30/20 05:00 51 L 90 L 09/30/20 04:00 97.4 F 53 L 20 88 L 09/30/20 03:00 58 L 92 L Pulse Ox 09/30/20 09:45 94 L 09/30/20 09:00 09/30/20 08:00 09/30/20 07:58 09/30/20 07:57 09/30/20 07:56 09/30/20 07:00 09/30/20 06:20 09/30/20 06:00 09/30/20 05:00 09/30/20 04:00 09/30/20 03:00 - Problem List & Annotations (1) COVID-19 SNOMED Code(s): 487036865 Code(s): U07.1 - COVID-19 Status: Acute Current Visit: Yes (2) Hyperglycemia SNOMED Code(s): 96560090 Code(s): R73.9 - HYPERGLYCEMIA, UNSPECIFIED Status: Acute Current Visit: Yes (3) Morbid obesity SNOMED Code(s): 016153990 Code(s): E66.01 - MORBID (SEVERE) OBESITY DUE TO EXCESS CALORIES Status: Acute Current Visit: Yes (4) Tobacco dependence due to cigarettes SNOMED Code(s): 62423387502507375 Code(s): F17.210 - NICOTINE DEPENDENCE, CIGARETTES, UNCOMPLICATED Status: Acute Current Visit: Yes - Problem List Review Problem List Initiated/Reviewed/Updated: Yes - My Orders Last 24 Hours: My Active Orders 09/29/20 21:00 Insulin Regular, Human [HumuLIN R] See Protocol SUBCUT BID 10/01/20 05:11 C-REACTIVE PROTEIN [CHEM] AM CBC WITH AUTO DIFF [HEME] AM CMP [COMPREHENSIVE METABOLIC PN,CMP] [CHEM] AM DD [D-DIMER QUANTITATIVE] [COAG] AM MAGNESIUM [CHEM] AM PHOSPHORUS [CHEM] AM - Plan Plan:: Impression: Covid-19 PNAimprovedon room air but still having some desats with ambulation Hyperglycemia: Blood sugars have stabilized in the low to mid 100s Chronic Morbid obesity DM II Plan SS Insulin: Switch to twice daily -she will not have to continue insulin as an outpatient because we will stop dexamethasone. Recheck labs in the morning MDI/IS/Acapella O2 therapy, keep O2 sat 88-94%; room air Dexamethasone day 7 Zithromax completed Rocephin completed Remdesivir completed VTE prophylaxis Lovenox 40 mg twice daily/ASA Pepcid CODE STATUS: Full code Anticipate discharge tomorrow
[2020-09-30] MEDS: Dexamethasone 4 MG Tab PO SCH (17:34)
[2020-09-30] MEDS: Famotidine 20 MG Tab PO SCH (20:33)
[2020-10-01] MEDS: Enoxaparin 40 MG/0.4 ML Syringe SUBCUT SCH (08:23)
[2020-10-01] MEDS: Aspirin 81 MG Tab.EC PO SCH (08:23)
[2020-10-01] MEDS: Insulin Regular, Human 100 Units/ML 3 ML Vial SUBCUT SCH (08:27)
--- NOTE | 2020-10-01 13:03 | PCM.DCSUM1 ---
Discharge Summary - Hospital Course HPI Initial Comments: 39 year old female with sick contact developed generalized weakness, malaise, fever/chills with nausea/vomiting. She had the contact in the [place] area. The patient tested positive for Covid-19. Additionally mycoplasma and strep pneumo will also be ordered. She has been started on IV ATBs and steroids per Covid-19 treatment guidelines. Symptoms began 09/19, she tested positive 09/23/2020. Assessment/Plan Comment:: Impression: Atypical PNA, Covid-19 with hypoxia Tobacco dependence syndrome Chronic Substance abuse Morbid obesity Plan Cautious IVF Check mycoplasma/strep pneumo Nicotine replacement Correct electrolytes MDI/IS/Acapella O2 therapy, keep O2 sat 88-94% Dexamethasone/Zithromax/Rocephin/Remdesivir Loveonox/ASA Pepcid Diagnosis: Stroke: No - Discharge Data Discharge Date: 10/01/20 Discharge Disposition: Home, Self-Care 01 Condition: Good - Referral to Home Health Primary Care Physician: PCP None - Discharge Diagnosis/Problem(s) (1) COVID-19 SNOMED Code(s): 513923358 ICD Code: U07.1 - COVID-19 Status: Acute Current Visit: Yes (2) Hyperglycemia SNOMED Code(s): 67486612 ICD Code: R73.9 - HYPERGLYCEMIA, UNSPECIFIED Status: Acute Current Visit: Yes (3) Morbid obesity SNOMED Code(s): 451014775 ICD Code: E66.01 - MORBID (SEVERE) OBESITY DUE TO EXCESS CALORIES Status: Acute Current Visit: Yes (4) Tobacco dependence due to cigarettes SNOMED Code(s): 52587982516562868 ICD Code: F17.210 - NICOTINE DEPENDENCE, CIGARETTES, UNCOMPLICATED Status: Acute Current Visit: Yes - Patient Summary/Data Hospital Course: 39-year-old female admitted with COVID-19 pneumonia. She was started on remdesivir and dexamethasone. She did require increasing oxygen support up to 4 L nasal cannula. Patient was then weaned over the next few days and has been off of supplemental oxygen for over 24 hours. She does drop into the upper 80s when she sleeps but this seems to be more related to sleep apnea than COVID-19. Patient is doing well at this time. She did have some elevated blood sugars and was started on a sliding scale, but this is likely secondary to dexamethasone, morbid obesity, and insulin resistance. Dexamethasone was stopped at discharge. Hemoglobin A1c was 6.7. - Patient Instructions Diet: Diabetic Diet Activity: As Tolerated Driving: Do Not Drive Showering/Bathing: May Shower Other/Special Instructions: Follow up with PCP next week. - Discharge Plan *PRESCRIPTION DRUG MONITORING PROGRAM REVIEWED*: No *COPY OF PRESCRIPTION DRUG MONITORING REPORT IN PATIENT SHASTA: No Home Medications: Home Meds Aspirin [Halfprin] 81 mg PO DAILY tab.ec 10/01/20 [Rx] Oxygen Therapy Mode: Room Air Patient Handouts: COVID-19 Frequently Asked Questions, COVID-19, Hyperglycemia, Sepsis, Diagnosis, Adult, COVID-19: How to Protect Yourself and Others - CDC, Prediabetes Eating Plan Forms: ED Department Discharge Referrals: PCP,None [Primary Care Provider] - - Discharge Summary/Plan Comment DC Time >30 min.: Yes Discharge Summary/Plan Comment: Discharged home in good condition. Follow-up with primary care provider in 1 to 2 weeks. - General Info Date of Service: 10/01/20 Admission Dx/Problem (Free Text: Admission Diagnosis/Problem Admission Diagnosis/Problem Pneumonia Subjective Update: Patient states that she is feeling well. She has no shortness of breath. Functional Status: Reports: Pain Controlled - Review of Systems General: Reports: No Symptoms HEENT: Reports: No Symptoms Pulmonary: Reports: No Symptoms Cardiovascular: Reports: No Symptoms Gastrointestinal: Reports: No Symptoms Musculoskeletal: Reports: No Symptoms Neurological: Reports: No Symptoms Psychiatric: Reports: No Symptoms - Patient Data Vitals - Most Recent: Last Vital Signs Temp 97.4 F 10/01/20 10:00 Pulse 77 10/01/20 10:00 Resp 22 H 10/01/20 10:00 BP 121/79 10/01/20 10:00 Pulse Ox 92 L 10/01/20 10:00 Weight - Most Recent: 358 lb I&O - Last 24 hours: Intake & Output 09/30/20 10/01/20 10/01/20 22:59 06:59 14:59 Intake Total 1820 1800 180 Output Total 800 800 Balance 1020 1000 180 Lab Results - Last 24 hrs: Laboratory Results - last 24 hr 09/30/20 10/01/20 10/01/20 Range/Units 20:36 05:06 05:06 WBC 9.24 (3.98-10.04) K/mm3 RBC 4.64 (3.98-5.22) M/mm3 Hgb 12.9 D (11.2-15.7) gm/dl Hct 39.8 (34.1-44.9) % MCV 85.8 (79.4-94.8) fl MCH 27.8 (25.6-32.2) pg MCHC 32.4 (32.2-35.5) g/dl RDW Std Deviation 44.7 (36.4-46.3) fL Plt Count 458 H D (182-369) K/mm3 MPV 10.2 (9.4-12.3) fl Neut % (Auto) 82.2 H (34.0-71.1) % Lymph % (Auto) 10.2 L (19.3-51.7) % [place] % (Auto) 4.9 (4.7-12.5) % Eos % (Auto) 0 L (0.7-5.8) Baso % (Auto) 0.2 (0.1-1.2) % Neut # (Auto) 7.60 H (1.56-6.13) K/mm3 Lymph # (Auto) 0.94 L (1.18-3.74) K/mm3 [place] # (Auto) 0.45 H (0.24-0.36) K/mm3 Eos # (Auto) 0.00 L (0.04-0.36) K/mm3 Baso # (Auto) 0.02 (0.01-0.08) K/mm3 Manual Slide Review Normal smear D-Dimer, Quantitative 0.42 (0.19-0.50) mg/L Sodium (136-145) mEq/L Potassium (3.5-5.1) mEq/L Chloride (98-107) mEq/L Carbon Dioxide (21-32) mEq/L Anion Gap (5-15) BUN (7-18) mg/dL Creatinine (0.55-1.02) mg/dL Est Cr Clr Drug Dosing mL/min Estimated GFR (MDRD) (>60) mL/min BUN/Creatinine Ratio (14-18) Glucose (74-106) mg/dL POC Glucose 176 H (70-105) mg/dL Calcium (8.5-10.1) mg/dL Phosphorus (2.6-4.7) mg/dL Magnesium (1.8-2.4) mg/dl Total Bilirubin (0.2-1.0) mg/dL AST (15-37) U/L ALT (14-59) U/L Alkaline Phosphatase (46-116) U/L C-Reactive Protein (<1.0) mg/dL Total Protein (6.4-8.2) g/dl Albumin (3.4-5.0) g/dl Globulin gm/dL Albumin/Globulin Ratio (1-2) 10/01/20 10/01/20 Range/Units 05:06 08:22 WBC (3.98-10.04) K/mm3 RBC (3.98-5.22) M/mm3 Hgb (11.2-15.7) gm/dl Hct (34.1-44.9) % MCV (79.4-94.8) fl MCH (25.6-32.2) pg MCHC (32.2-35.5) g/dl RDW Std Deviation (36.4-46.3) fL Plt Count (182-369) K/mm3 MPV (9.4-12.3) fl Neut % (Auto) (34.0-71.1) % Lymph % (Auto) (19.3-51.7) % [place] % (Auto) (4.7-12.5) % Eos % (Auto) (0.7-5.8) Baso % (Auto) (0.1-1.2) % Neut # (Auto) (1.56-6.13) K/mm3 Lymph # (Auto) (1.18-3.74) K/mm3 [place] # (Auto) (0.24-0.36) K/mm3 Eos # (Auto) (0.04-0.36) K/mm3 Baso # (Auto) (0.01-0.08) K/mm3 Manual Slide Review D-Dimer, Quantitative (0.19-0.50) mg/L Sodium 136 (136-145) mEq/L Potassium 4.5 (3.5-5.1) mEq/L Chloride 101 (98-107) mEq/L Carbon Dioxide 26 (21-32) mEq/L Anion Gap 13.5 (5-15) BUN 20 H (7-18) mg/dL Creatinine 0.9 (0.55-1.02) mg/dL Est Cr Clr Drug Dosing 80.80 mL/min Estimated GFR (MDRD) > 60 (>60) mL/min BUN/Creatinine Ratio 22.2 H (14-18) Glucose 204 H (74-106) mg/dL POC Glucose 141 H (70-105) mg/dL Calcium 8.6 (8.5-10.1) mg/dL Phosphorus 4.0 (2.6-4.7) mg/dL Magnesium 2.3 (1.8-2.4) mg/dl Total Bilirubin 0.3 (0.2-1.0) mg/dL AST 11 L (15-37) U/L ALT 17 (14-59) U/L Alkaline Phosphatase 60 (46-116) U/L C-Reactive Protein <0.2 (<1.0) mg/dL Total Protein 6.8 (6.4-8.2) g/dl Albumin 2.8 L (3.4-5.0) g/dl Globulin 4.0 gm/dL Albumin/Globulin Ratio 0.7 L (1-2) Med Orders - Current: Current Medications Acetaminophen (Tylenol) 650 mg PO Q6H PRN PRN Reason: Pain/Fever Albuterol (Proventil Hfa) 0 gm INH Q4H PRN PRN Reason: Shortness of Breath Last Admin: 09/28/20 21:43 Dose: 2 puff Documented by: Aspirin (Halfprin) 81 mg PO DAILY [facility] Last Admin: 10/01/20 08:23 Dose: 81 mg Documented by: Dexamethasone (Dexamethasone) 6 mg PO Q24H [facility] Stop: 10/03/20 18:01 Last Admin: 09/30/20 17:34 Dose: 6 mg Documented by: Enoxaparin Sodium (Lovenox) 40 mg SUBCUT Q12H [facility] Last Admin: 10/01/20 08:23 Dose: 40 mg Documented by: Famotidine (Pepcid) 20 mg PO BEDTIME [facility] Last Admin: 09/30/20 20:33 Dose: 20 mg Documented by: Insulin Human Regular (Humulin R) 0 unit SUBCUT BID [facility]; Protocol Last Admin: 10/01/20 08:27 Dose: Not Given Documented by: Discontinued Medications Albuterol (Proventil Hfa) 1 gm INH Q4H PRN PRN Reason: Shortness of Breath Cefdinir (Omnicef) 300 mg PO BID [facility] Stop: 09/29/20 21:01 Last Admin: 09/29/20 20:21 Dose: 300 mg Documented by: Dexamethasone (Decadron) 6 mg IVPUSH ONETIME ONE Stop: 09/24/20 18:47 Last Admin: 09/24/20 19:12 Dose: 6 mg Documented by: Dexamethasone (Dexamethasone) 6 mg PO DAILY [facility] Remdesivir 200 mg/ Sodium (Chloride) 250 mls @ 250 mls/hr IV ONETIME ONE Stop: 09/24/20 18:47 Last Admin: 09/24/20 19:12 Dose: 250 mls/hr Documented by: Remdesivir (Remdesivir (Eua)) Confirm Administered Dose 100 mls @ as directed .ROUTE .STK-MED ONE Stop: 09/24/20 19:00 Last Admin: 09/24/20 19:12 Dose: Not Given Documented by: Remdesivir 100 mg/ Sodium (Chloride) 100 mls @ 100 mls/hr IV Q24H [facility] Stop: 09/28/20 18:59 Last Admin: 09/28/20 18:28 Dose: 100 mls/hr Documented by: Azithromycin 500 mg/ Sodium (Chloride) 250 mls @ 250 mls/hr IV Q24H [facility] Stop: 09/27/20 09:59 Last Admin: 09/27/20 09:29 Dose: 250 mls/hr Documented by: Ceftriaxone Sodium 2 gm/ (Sodium Chloride) 100 mls @ 200 mls/hr IV Q24H [facility] Stop: 09/29/20 08:29 Last Admin: 09/29/20 08:07 Dose: Not Given Documented by: Sodium Chloride (Normal Saline) 1,000 mls @ 75 mls/hr IV ASDIRECTED [facility] Stop: 09/25/20 15:45 Last Admin: 09/25/20 08:38 Dose: 75 mls/hr Documented by: Insulin Human Regular (Humulin R) 0 unit SUBCUT TIDPC [facility]; Protocol Last Admin: 09/29/20 07:59 Dose: 1 unit Documented by: Miscellaneous Information (Remove Patch) 0 ea TRDERM DAILY [facility] Last Admin: 09/28/20 08:29 Dose: Not Given Documented by: Nicotine (Habitrol) 14 mg TRDERM DAILY [facility] Last Admin: 09/26/20 08:12 Dose: Not Given Documented by: Sodium Chloride (Saline Flush) 10 ml FLUSH ASDIRECTED PRN PRN Reason: Keep Vein Open Last Admin: 09/24/20 16:38 Dose: 10 ml Documented by: - Exam Quality Assessment: Denies: Supplemental Oxygen General: Reports: Alert, Oriented HEENT: Reports: Pupils Equal, Mucous Membr. Moist/[place] Neck: Reports: Supple Lungs: Reports: Clear to Auscultation, Normal Respiratory Effort Cardiovascular: Reports: Regular Rate, Regular Rhythm GI/Abdominal Exam: Normal Bowel Sounds, Soft, Non-Tender, No Distention (Morbid obesity) Extremities: Normal Inspection, Normal Range of Motion, Non-Tender, No Pedal Edema, Normal Capillary Refill Psy/Mental Status: Reports: Alert, Normal Affect, Normal Mood
== END 2020-10-01 15:30 | disposition home or self-care (01) | DRG 137 ==
LOC: JD.ED 16:00 → JD.ICU 20:11
PROVIDERS: ADMIT Internal Medicine Cardiovascular Disease; ATTEND Internal Medicine Cardiovascular Disease
PROC: XW033E5 Introduction of Remdesivir Anti-infective into Peripheral Vein, Percutaneous Approach, New Technology Group 5 (ICD-10-PCS; principal; 2020-09-24)
DX: U07.1 COVID-19 (principal); J12.89 Other viral pneumonia; E66.01 Morbid (severe) obesity due to excess calories; R73.9 Hyperglycemia, unspecified; F12.90 Cannabis use, unspecified, uncomplicated; F17.210 Nicotine dependence, cigarettes, uncomplicated; Z79.82 Long term (current) use of aspirin; Z90.89 Acquired absence of other organs; Z98.890 Other specified postprocedural states; Z99.81 Dependence on supplemental oxygen; Z79.4 Long term (current) use of insulin; Z68.43 Body mass index [BMI] 50.0-59.9, adult
CPT/HCPCS: 36415; 36600; 71045; 71045-26; 80048; 80053; 82728; 82803; 82962; 83036; 83605; 83615; 83735; 83880; 84100; 84145; 84484; 85007; 85025; 85027; 85379; 85610; 85730; 86140; 86738; 87899; 93005; 93010; 94640; 94667; 94668; 96365; 96375; 99222; 99231; 99232; 99239; 99283; 99285-25; A9270-GY; J0456; J0696; J1100; J1650; J1815-GY; J7030; J7050; J8540